=== PATIENT | male | born 1970 | race Caucasian/White ===

== ENCOUNTER 2023-05-06 19:15 | Emergency (ER) | payer OTHER, SELFPAY ==
[2023-05-06 19:27] VITALS: BMI 39.4
[2023-05-06 19:28] VITALS: BP 158/102
--- NOTE | 2023-05-06 19:47 | ED.GENMED ---
History of Present Illness
General
Chief Complaint: Chest Pain
Source: patient
Time Seen by Provider: 05/06/23 19:35
Travel History
Have you had any contact with someone who has COVID-19?: No
Do you have any symptoms of coronavirus? Fever > 100 degrees, chills, cough, shortness of breath, sore throat, loss of taste or smell, muscle aches, or headache?: No
History of Present Illness
History of Present Illness:
52-year-old male presents to the emergency room for evaluation after having a syncopal episode at work. Patient evidently began feeling dizzy. He alerted coworkers who were able to prevent him from falling to the ground. Patient has been
experiencing pain in his chest which she describes as sharp. He was actually evaluated at [facility] yesterday for this sharp chest pain. He had blood work and an echocardiogram which was evidently okay. Patient evidently has a history
of PE for which she takes Coumadin. His INR was low when it was last checked and his dose of Coumadin was increased. Patient has been experiencing this sharp chest pain for the past 3 days or so. He has attributed this to a 'chest cold'. He has
been taking [id number] medications for the chest cold.
Past History
Past History
ED Past Medical History: Arrthythmia, NIDDM and Other (PE)
ED Past Surgical History: Orthopedic and Other
Social History
Tobacco: Non-smoker
Alcohol: None
Drug: None
Personal:
Living: with family
Employment: Employed
Phy Exam
Physical Exam
Physical Exam:
General: Awake, Alert, Oriented X3. No acute distress.
Vitals: unremarkable
Head: Atraumatic
Eyes: Pupils equal, EOMI
Throat: Airway intact, no exudates
Neck: Trachea midline
Lungs: Clear and equal b/l
Heart: Regular rate, no murmurs
Abd: Soft, Nontender, No pulsatile mass
Neuro: Nonfocal
Skin: Warm, dry, no rash
Extremities: pulses equal b/l, no edema
Scores
Heart Score for Chest Pain Patients
STEMI patient?: No
History: Slightly or Non-Suspicious
ECG: Normal
Age: >45 - <65 years
Risk Factors: 1 or 2 Risk Factors
Troponin: </= Normal Limit
Heart Score for Chest Pain Patients: 2
Heart Score Risk: 2.5% MACE over next 6 weeks
Course
Orders/Labs/Results
Orders:
Orders
05/06/23 19:21
EKG [Electrocardiogram (*1)] Urgent
Reason for Study: Tachycardia
EKG- Treatment ONCE
05/06/23 19:39
Complete Blood Count/With Diff Urgent
Comprehensive Metabolic Panel Urgent
Troponin I Urgent
05/06/23 19:41
COVID-19 Antigen Urgent
Source: Nasal Swab
Influenza A+B Rapid Molecular Urgent
XIOMARA Source: Nasal Swab
Specimen Description:
05/06/23 20:12
D-Dimer Urgent
Prothrombin Time Urgent
05/06/23 20:22
Acetaminophen [Tylenol] 1,000 mg .ROUTE .STK-MED ONE
05/06/23 20:24
Acetaminophen [Tylenol] 1,000 mg PO NOW STA
05/06/23 20:53
CR Chest - 2 Views Urgent
Comment:
Reason For Exam: chest pain
05/06/23 22:43
Troponin I Urgent
05/06/23 23:01
Lidocaine [Lidocaine 4% Patch] 1 patch .ROUTE .STK-MED ONE
05/06/23 23:10
Lidocaine [Lidocaine 4% Patch] 1 patch TOPICAL NOW STA
05/07/23 08:00
Lidocaine [Lidocaine 4% Patch] 1 patch TOPICAL DAILY
Abnormal Lab Results
05/06/23 05/06/23
19:39 20:12
RBC 4.43 L 10^6/uL
(4.70-6.10)
MPV 10.6 H fL
(7.4-10.4)
Abs Immat Gran (auto) 0.1 H 10^3/uL
(0-0.05)
Immature Gran % 0.7 H %
(0-0.5)
PT 22.5 H Sec
(11.4-14.6)
Glucose 117 H mg/dl
(70-99)
05/06/23 19:39
05/06/23 19:39
Vital Signs
Initial and Last Documented VS:
Initial Vital Signs
Pulse Resp
78 18
05/06/23 19:20 05/06/23 19:20
Last Documented Vital Signs
Temp Pulse Resp BP Pulse Ox
98.6 F 80 20 154/93 95
05/06/23 19:28 05/07/23 00:15 05/07/23 00:15 05/07/23 00:00 05/07/23 00:15
MDM/Problems Addressed
Differential Diagnosis Includes:
Acute coronary syndrome, PE, chest wall discomfort
MDM/Problems Addressed:
Patient presents with chest pain and syncope. He had a workup at [facility] yesterday for this chest pain which included a echocardiogram. Here patient's vital signs are normal. He is not tachycardic. Is not hypoxic. He does not have
increased work of breathing. Patient is on Coumadin because he has had a PE in the past. His INR is therapeutic today. D-dimer is normal. Troponin is normal x 2. Patient is CT of the chest performed here 2 weeks ago which was unremarkable.
Chest x-ray obtained today shows no acute abnormalities. Unclear what the patient's chest discomfort is from but I feel we have excluded acute coronary syndrome, PE or other emergent process. Patient stable for discharge home. Syncope likely
vasovagal.
*Radiology
Radiology exam reviewed: preliminary read by ED provider (Personally reviewed the patient's chest x-ray, no acute disease)
*Pulse Oximetry
Patient hypoxic: no
*EKG
Interpreted by ED Provider?: Yes
Interpretation: abnormal
Comparison EKG: changes noted (No longer in atrial fibrillation)
Heart Rate: 82
Rate: normal
Rhythm: sinus and PVC's
Interval: normal interval
QRS Pattern: normal QRS
Ischemia: no ischemia
*Finance Business Partner Interpretation
Rate: normal
Interpretation: normal
Rhythm: sinus
*Critical Care Note
Total Time (30-74mins, 75-104mins- exclusive of procedures): Not Applicable
Data Reviewed
Further Testing Considered But Not Given:
Considered CT of the chest but given the patient had a CT 2 weeks ago, he has normal heart rate, normal D-dimer clinical suspicion for PE is very low. In addition he had a CT chest a couple weeks ago so others think such as a thoracic abdomen
dissection would have been picked up at that time.
Patient Management
Social determinants of health affecting care: Strong social support
ED Attending Note
-
Portions of this chart may have been created with voice recognition software.� Occasional wrong word or��sound alike� substitutions may have occurred due to the inherent limitations of voice recognition software.
Discharge Plan
Departure
Patient Disposition: Home (Routine Discharge)
Date of Disposition: 05/07/23
Time of Disposition: 00:16
Patient with high blood pressure during this ER visit?: No
Condition: Good
Discharge Problem:
Chest pain
Instructions: Chest Pain PCP Follow Up, BLOOD PRESSURE
Prescriptions:
No Action
multivitamin Tablet
1 tab PO DAILY
diltiazem HCl [DILT-XR] 240 mg capsule,ext.rel 24h degradable
240 mg PO DAILY
sennosides-docusate sodium [Colace 2-In-1] 8.6-50 mg Tablet
1 tab-cap PO HS
venlafaxine 150 mg capsule,extended release 24hr
150 mg PO DAILY
tramadol 50 mg tablet
50 mg PO BID PRN (Reason: moderate pain)
Patient Comments:
04/15/2023: last filled 04/09/23, 60 tabs for 30 days from [id number]
risperidone 3 mg tablet
3 mg PO HS
metformin 1,000 mg tablet
1,000 mg PO BID
warfarin 5 mg tablet
7.5 mg PO MOTH@1500
warfarin 5 mg tablet
5 mg PO SUTUWEFRSA@1500
valsartan 320 mg tablet
320 mg PO DAILY
metoprolol succinate 25 mg tablet extended release 24 hr
25 mg PO DAILY
buspirone 15 mg tablet
30 mg PO BID
rosuvastatin 20 mg tablet
20 mg PO HS
clonazepam 1 mg Tablet
1 mg PO BID PRN (Reason: anxiety)
lorazepam 1 mg Tablet
1 mg PO BID PRN (Reason: anxiety)
bupropion HCl 75 mg Tablet
75 mg PO DAILY
Referrals:
Jennifer Vasquez, DO [Family Provider] -
Interventions
Interventions:
*Risk Screen - Suicide Last Done: 05/06/23 19:17
*General Assessment Last Done: 05/06/23 19:17
*Neglect/Abuse Screening Last Done: 05/06/23 19:17
ED- Fall Risk Assessment Last Done: 05/06/23 19:35
*ED COVID-19 Vaccine History Last Done: 05/06/23 19:17
*Nursing Disposition Last Done: 05/07/23 00:26
ED- Cardiac Assessment Last Done: 05/06/23 19:35
Discharge Date and Time
Discharge Date/Time: 05/07/23 00:27
[2023-05-06 19:56] LABS: % Basophils 0.4 % (0-2); % Eosinophils 2.7 % (0-6); % Immature Granulocytes 0.7 % (0-0.5); % Lymphocytes 28.2 % (20.5-51.1); % Monocytes 7.9 % (1.7-9.3); % Neutrophils 60.1 % (42.2-75.2); Absolute Eosinophils 0.2 10^3/uL (0-0.7); Absolute Immature Granulocytes 0.1 10^3/uL (0-0.05); Absolute Lymphocytes 2.3 10^3/uL (1.2-3.4); Absolute Monocytes 0.6 10^3/uL (0.1-0.6); Absolute Neutrophils 4.8 10^3/uL (1.4-6.5); Hematocrit 39.6 % (39.0-52.0); Hemoglobin 13.4 g/dL (13.0-18.0); Mean Corp Hgb Conc. 33.8 g/dL (33.0-37.0); Mean Corpuscular Hgb 30.2 pg (27.0-31.0); Mean Corpuscular Volume 89.4 fL (80.0-94.0); Mean Platelet Volume 10.6 fL (7.4-10.4); Nucleated Red Blood Cells % 0 % (-); Platelet Count 239 10^3/uL (130-400); Red Blood Cell Count 4.43 10^6/uL (4.70-6.10); Red Cell Dist. Width 14.2 % (11.5-14.5)
[2023-05-06 20:00] VITALS: BP 154/104
[2023-05-06 20:12] LABS: COVID-19 Antigen Negative (Negative)
[2023-05-06 20:14] LABS: ALT (SGPT) 37 U/L (0-50); AST (SGOT) 29 U/L (17-59); Albumin 4.1 g/dl (3.5-5.0); Alkaline Phosphatase 87 U/L (38-126); Blood Urea Nitrogen 13 mg/dl (9-20); Calcium 9.4 mg/dl (8.4-10.2); Carbon Dioxide 25 mmol/L (22-30); Chloride 100 mmol/L (98-107); Estimated Creatinine Clearance > 125 ml/min; Glucose 117 mg/dl (70-99); Potassium 3.6 mmol/L (3.5-5.1); Sodium 138 mmol/L (135-145); Total Bilirubin 0.6 mg/dl (0.2-1.3); Total Protein 6.6 g/dl (6.3-8.2); eGFR > 60.00
[2023-05-06 20:21] LABS: Troponin I < 0.012 ng/ml
[2023-05-06] MEDS: TYLENOL 1000 MG PO (20:27)
[2023-05-06 20:29] LABS: INR 1.94; PT 22.5 Sec (11.4-14.6)
[2023-05-06 20:34] LABS: D-Dimer 0.27 ug/mlFEU (0.00-0.50)
[2023-05-06 21:00] VITALS: BP 152/99
[2023-05-06 21:37] VITALS: BP 163/99
[2023-05-06 22:00] VITALS: BP 151/101
[2023-05-06] MEDS: LIDOCAINE 4% PATCH 1 PATCH TOPICAL (23:02)
[2023-05-06 23:03] VITALS: BP 166/112
[2023-05-06 23:16] LABS: Troponin I < 0.012 ng/ml
[2023-05-07] VITALS: BP 154/93
== END 2023-05-07 00:27 | disposition home or self-care (01) ==
LOC: EMR 19:15
PROVIDERS: EMERGENCY PHYSICIAN Emergency Medicine; FAMILY PHYSICIAN Family Medicine
DX: R07.89 Other chest pain (principal); E11.9 Type 2 diabetes mellitus without complications; I49.3 Ventricular premature depolarization; Z79.01 Long term (current) use of anticoagulants; Z86.711 Personal history of pulmonary embolism
CPT/HCPCS: 99283; 71046; 80053; 84484; 85025; 85379; 85610; 87502; 87811; 93005

== ENCOUNTER 2024-10-23 00:20 | Observation (INO) | payer OTHER, SELFPAY ==
[2024-10-22] VITALS (7 sets, daily range): BP systolic 131–158; BP diastolic 68–100; BMI 40.9
[2024-10-22 17:35] LABS: Hematocrit 38.2 % (39.0-52.0); Hemoglobin 13.3 g/dL (13.0-18.0); Mean Corp Hgb Conc. 34.8 g/dL (33.0-37.0); Mean Corpuscular Volume 85.3 fL (80.0-94.0); Nucleated Red Blood Cells % 0 % (-); Platelet Count 212 10^3/uL (130-400); Red Cell Dist. Width 13.4 % (11.5-14.5)
[2024-10-22 17:55] LABS: ALT (SGPT) 34 U/L (0-50); AST (SGOT) 27 U/L (17-59); Albumin 4.2 g/dl (3.5-5.0); Alkaline Phosphatase 100 U/L (38-126); Blood Urea Nitrogen 12 mg/dl (9-20); Calcium 9.0 mg/dl (8.4-10.2); Carbon Dioxide 21 mmol/L (22-30); Chloride 111 mmol/L (98-107); Estimated Creatinine Clearance 124 ml/min; Glucose 153 mg/dl (70-99); Potassium 4.3 mmol/L (3.5-5.1); Sodium 140 mmol/L (135-145); Total Protein 6.9 g/dl (6.3-8.2); eGFR > 60.00
[2024-10-22 17:58] LABS: Troponin I < 0.012 ng/ml
[2024-10-22] MEDS: MORPHINE SULFATE 4 MG IV (18:47)
[2024-10-22 19:04] LABS: INR 1.62; PT 19.5 Sec (11.4-14.6)
--- NOTE | 2024-10-22 20:12 | ED.GENMED ---
History of Present Illness
General
Chief Complaint: Chest Pain
Source: patient
Exam Limitations: none
Time Seen by Provider: 10/22/24 18:09
Nursing documentation reviewed up to this point in time: agreed with
History of Present Illness
History of Present Illness:
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
EMS arrival EMS administered 1 nitro very slight improvement. Mild shortness of breath associated no nausea vomiting or diarrhea. No fevers no recent illness. Does have a long history of previous PE currently on Coumadin, atrial fibrillation does
have a pacemaker defibrillator in place. Has had very similar episodes at least 10 over the past year and has had multiple workups without any specific findings. Had a recent CT angio of the chest 1 month ago that was normal last cardiac
catheterization about 1 year ago which was also normal. Follows up with cardiology at [facility].
Past History
Past History
ED Past Medical History: Arrthythmia, NIDDM and Other (PE)
ED Past Surgical History: Orthopedic and Other
Social History
Tobacco: Non-smoker
Alcohol: None
Drug: None
Personal:
Living: with family
Employment: Employed
Review of Systems
Review of Systems
Allergies reviewed?: Yes
All Other Systems: ROS reviewed and negative except as documented in HPI and ROS
Phy Exam
Physical Exam
Physical Exam:
GENERAL: Alert , in no apparent distress
EYE: pupils equal and reactive
NECK: Supple, no significant adenopathy.
ENT: o/p clr, mmm.
CARDIAC: Regular rate and rhythm .
LUNGS: Clear breath sounds bilaterally, no acute respiratory distress, no wheezes/rales/rhonchi
ABDOMEN: Soft, without focal tenderness, no r/g, no cvat
NEUROLOGICAL: Alert and oriented, no focal neuro deficits
SKIN: Warm and dry, skin intact.
MUSCULOSKELETAL: No edema, well perfused.
PSYCH: Normal and appropriate interaction.
Scores
Heart Score for Chest Pain Patients
STEMI patient?: No
History: Moderately Suspicious
ECG: Nonspecific Repolarization
Age: >45 - <65 years
Risk Factors: >/= 3 Risk Factors or History of CAD
Troponin: </= Normal Limit
Heart Score for Chest Pain Patients: 5
Heart Score Risk: 20.3% MACE over next 6 weeks
Course
Orders/Labs/Results
Orders:
Orders
10/22/24 17:20
Electrocardiogram (*1) Urgent
Reason for Study: Chest Pain
Cardiac Monitoring- Treatment ONCE
EKG- Treatment ONCE
10/22/24 17:24
Complete Blood Count/With Diff Urgent
Comprehensive Metabolic Panel Urgent
Troponin I Urgent
10/22/24 17:38
CXR2 [CR Chest - 2 Views ] Urgent
Comment:
Reason For Exam: CP
10/22/24 18:36
Morphine Sulfate 4 mg IV NOW STA
10/22/24 18:40
D-Dimer Urgent
Comment: ADD ON
PT/INR [Prothrombin Time] Urgent
10/22/24 18:54
EKG- Treatment ONCE
10/22/24 20:25
EKG [Electrocardiogram (*1)] Urgent
Reason for Study: Chest Pain
10/22/24 20:33
Add On- LAB Urgent
Comments:: d-dimer
Tests Added?: d-dimer
10/22/24 20:37
D-Dimer Urgent
Troponin I Urgent
10/22/24 20:43
HYDROmorphone [Dilaudid] 0.5 mg IV NOW STA
Abnormal Lab Results
10/22/24 10/22/24
17:24 18:40
RBC 4.48 L 10^6/uL
(4.70-6.10)
Hct 38.2 L %
(39.0-52.0)
MPV 10.8 H fL
(7.4-10.4)
Abs Immat Gran (auto) 0.1 H 10^3/uL
(0-0.05)
Absolute Neuts (auto) 6.7 H 10^3/uL
(1.4-6.5)
Absolute Monos (auto) 0.7 H 10^3/uL
(0.1-0.6)
Immature Gran % 0.6 H %
(0-0.5)
Lymphocytes % 18.2 L %
(20.5-51.1)
PT 19.5 H Sec
(11.4-14.6)
Chloride 111 H mmol/L
(98-107)
Carbon Dioxide 21 L mmol/L
(22-30)
Glucose 153 H mg/dl
(70-99)
10/22/24 17:24
10/22/24 17:24
Vital Signs
Initial and Last Documented VS:
Initial Vital Signs
Temp Pulse Resp BP Pulse Ox
98.9 F 98 20 139/68 97
10/22/24 17:24 10/22/24 17:24 10/22/24 17:24 10/22/24 17:24 10/22/24 17:24
Last Documented Vital Signs
Temp Pulse Resp BP Pulse Ox
98.9 F 85 16 136/84 97
10/22/24 17:24 10/22/24 23:15 10/22/24 18:45 10/22/24 23:00 10/22/24 23:15
MDM/Problems Addressed
MDM/Problems Addressed:
53-year-old male presenting to the emergency department today with concerns of left-sided chest pressure with radiation to the left arm and left jaw. On arrival EKG with nonspecific T wave changes mainly to the lateral leads. Vital signs are
normal labs unremarkable troponin negative. Patient still with ongoing pain was given dose of morphine had slight improvement. Vital signs remained normal throughout ER stay labs with negative D-dimer 2 negative troponins EKG was repeated
unchanged. Chest x-ray normal. Patient was concerned that he had ongoing chest pain concerning the characteristics of the chest pain plan to admit for monitoring overnight.
*Pulse Oximetry
SaO2: 96
Oxygen Mode of Delivery: Room air
Patient hypoxic: no (97)
*Critical Care Note
Total Time (30-74mins, 75-104mins- exclusive of procedures): Not Applicable
ED Attending Note
-
Portions of this chart may have been created with voice recognition software.� Occasional wrong word or��sound alike� substitutions may have occurred due to the inherent limitations of voice recognition software.
Discharge Plan
Departure
Patient Disposition: Admit
Date of Disposition: 10/22/24
Time of Disposition: 23:41
Admit to: Telemetry
Admit to doctor: Chet
Presentation/result/management discussed w/ accepting MD/DO: Hospitalist
Patient with high blood pressure during this ER visit?: No
Condition: Good
Covid-19: Not Applicable
Discharge Problem:
Chest pain
Prescriptions:
No Action
venlafaxine 150 mg capsule,extended release 24hr
150 mg PO DAILY
warfarin 5 mg tablet
7.5 mg PO DAILY
valsartan 320 mg tablet
320 mg PO DAILY
buspirone 15 mg tablet
30 mg PO BID
rosuvastatin 20 mg tablet
20 mg PO HS
lorazepam 1 mg Tablet
1 mg PO BID PRN (Reason: anxiety)
hydralazine 10 mg Tablet
10 mg PO TID
amlodipine 5 mg Tablet
5 mg PO HS
famotidine [Pepcid AC] 20 mg Tablet
20 mg PO DAILY
pantoprazole 40 mg Tablet,Delayed Release (Dr/Ec)
40 mg PO BID
olanzapine 15 mg Tablet
15 mg PO HS
midodrine 2.5 mg Tablet
2.5 mg PO TID
fludrocortisone 0.1 mg Tablet
0.05 mg PO DAILY
pindolol 5 mg Tablet
5 mg PO BID
desmopressin 0.1 mg Tablet
0.1 mg PO .DAILYEVERYMONDAY
guanfacine 1 mg Tablet Extended Release 24 Hr
1 mg PO QPM
potassium chloride 20 mEq Tablet Extended Release
20 meq PO DAILY
magnesium oxide 400 mg magnesium Tablet
400 mg PO HS
Referrals:
Jennifer Vasquez, DO [Family Provider, Family Practice]
Interventions
Interventions:
*Risk Screen - Suicide Last Done: 10/22/24 17:35
*General Assessment Last Done: 10/22/24 17:35
*Neglect/Abuse Screening Last Done: 10/22/24 17:35
*ED- Fall Risk Assessment Last Done: 10/22/24 17:35
*ED COVID-19 Vaccine History Last Done: 10/22/24 17:35
ED- Cardiac Assessment Last Done: 10/22/24 17:35
Discharge Date and Time
Print Language: YORUBA
[2024-10-22] MEDS: DILAUDID 0.5 MG IV (20:52)
[2024-10-22 21:00] LABS: D-Dimer < 0.27 ug/mlFEU (0.00-0.50)
[2024-10-22 21:00] LABS: D-Dimer < 0.27 ug/mlFEU (0.00-0.50)
[2024-10-22 21:09] LABS: Troponin I < 0.012 ng/ml
--- NOTE | 2024-10-22 22:56 | HPS.HSE ---
Family Physician
-
Family Physician: Jennifer Vasquez
Chief Complaint
-
chest pain
History of Present Illness
The patient is a 53-year-old gentleman with past medical history significant for atrial fibrillation, pacemaker, AICD, mve-flulsnc-rxalrpegr diabetes, pulmonary embolism on Coumadin who presents to the emergency department secondary to midsternal
chest pain described as pressure radiating to his left arm and left jaw. 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 He took 2 nitroglycerin prior to EMS arrival with only slight improvement. Chest pain is associated
with shortness of breath, he denies nausea vomiting diarrhea. Of note he has had a CT angio of the chest 1 month prior that was normal. His last cardiac catheterization at [place] was approximately 1 year ago and normal at that time. He was
admitted to [facility] approximately 1 month ago and had a CTA of the chest that time that he says was negative for pulmonary embolism. Of note he also says that his INR was elevated and he held his Coumadin dose yesterday. His tunnel inspector is
at [facility]. INR 1.62, troponin less than 0.012 x 2
ED treatment 4 mg IV morphine, 0.5 mg IV Dilaudid
Medical History
Past Medical History
Past Medical History: Reports Arrhythmia (atrial fibrillation), NIDDM and Other
Additional Past Medical History:
He has an autonomic specialist Dr. Gautam, orthostatic hypotension diagnosed April 2023 [facility], possible POTS
Past Surgical History: Reports Bowel Resection (Partial colectomy 2023 with reversal July 2024 at [place]), Cardiac (AICD, dual-chamber defibrillator pacemaker implanted September 04, [address] [facility], cardiac catheterization August 31, 2023,
umbilical hernia repair 2013, microdiscectomy L4-L5 2018) and Orthopedic
Social History
Tobacco: Non-smoker
Alcohol: None
Drug: None
Personal:
Living: With Family
Family History
Family History: Adopted
Allergies / Home Medications
Allergies reflects when Allergies were last updated in [employer].
Home Medications with original date entered in [facility]
Allergy/Medication List:
Allergies
Allergy/AdvReac Type Severity Reaction Status Date / Time
aspirin Allergy Unknown Unknown Verified 10/22/24 17:24
cefuroxime Allergy Unknown Unknown Verified 10/22/24 17:24
fentanyl Allergy hallucinati Verified 10/22/24 17:24
on/nausea
Latex, Natural Rubber Allergy Unknown Verified 10/22/24 17:24
NSAIDS (Non-Steroidal Allergy Unknown Verified 10/22/24 17:24
Anti-Inflamma
Home Medications
buspirone 15 mg tablet 30 mg PO BID 04/15/23
rosuvastatin 20 mg tablet 20 mg PO HS 04/15/23
valsartan 320 mg tablet 320 mg PO DAILY 04/15/23
venlafaxine 150 mg capsule,extended release 24 hr 150 mg PO DAILY 04/15/23
warfarin 5 mg tablet 7.5 mg PO DAILY 04/15/23
lorazepam 1 mg tablet 1 mg PO BID PRN anxiety 05/06/23
amlodipine 5 mg tablet 5 mg PO HS 10/22/24
desmopressin 0.1 mg tablet 0.1 mg PO .DAILYEVERYMONDAY 10/22/24
famotidine 20 mg tablet (Pepcid AC) 20 mg PO DAILY 10/22/24
fludrocortisone 0.1 mg tablet 0.05 mg PO DAILY 10/22/24
guanfacine 1 mg tablet,extended release 24 hr 1 mg PO QPM 10/22/24
hydralazine 10 mg tablet 10 mg PO TID 10/22/24
magnesium oxide 400 mg PO HS 10/22/24
midodrine 2.5 mg tablet 2.5 mg PO TID 10/22/24
olanzapine 15 mg tablet 15 mg PO HS 10/22/24
pantoprazole 40 mg tablet,delayed release 40 mg PO BID 10/22/24
pindolol 5 mg tablet 5 mg PO BID 10/22/24
potassium chloride 20 mEq tablet,extended release 20 meq PO DAILY 10/22/24
Review of Systems
-
A 12 point ROS was completed and negative except as noted: Yes
Physical Exam
Vital Signs
Vital Signs
Temp Pulse Resp BP Pulse Ox
98.9 F 84 16 158/100 98
10/22/24 17:24 10/22/24 22:00 10/22/24 18:45 10/22/24 22:00 10/22/24 22:00
Physical Exam
General: Well Developed, Well Nourished, No Apparent Distress and Comfortable
HEENT: NormoCephalic, Anicteric and Moist mucous membranes
Respiratory: Clear
Cardiac: S1/S2 and Regular Rhythm
GI: Soft, Non Tender and Non Distended
Musculoskeletal: No Clubbing, No Cyanosis and No Edema
Skin: Warm and Dry
Neuro: AO x 3 and No Motor Deficits
Psych: Calm
Laboratory Results
-
10/22/24 17:24
10/22/24 17:24
Laboratory Results
PT 19.5 Sec (11.4-14.6) H 10/22/24 18:40
INR 1.62 10/22/24 18:40
Total Bilirubin 0.7 mg/dl (0.2-1.3) 10/22/24 17:24
AST 27 U/L (17-59) 10/22/24 17:24
ALT 34 U/L (0-50) 10/22/24 17:24
Alkaline Phosphatase 100 U/L (38-126) 10/22/24 17:24
Troponin I < 0.012 ng/ml 10/22/24 20:37
Data Reviewed
-
Diagnostic Radiology: Image Personally Visualized and interpreted and Report Reviewed by me (Chest x-ray without acute pathology)
Medical Tests (Nuc Med, Echo, EKG etc): Image Personally Visualized and interpreted and Report Reviewed by me (EKG sinus rhythm frequent PVCs unchanged from prior)
Impression/Plan
-
IMPRESSION:
# Chest pain, concern for possible acute coronary syndrome
- Admit to telemetry monitoring
- Consult to cardiology, his tunnel inspector is at [facility]
-Obtain records from [facility]
- Serial cardiac biomarkers
- Patient is allergic to aspirin
-prn Morphine for pain
-NPO p mn pending Cards eval
# Autonomic dysfunction/POTS
-desmopressin weekly
-fludrocortisone
- IV infusions of 2 L every other week
# Continue psychiatric medications
-venlafaxine
-Buspirone
# History of AICD and pacemaker
# Hyperlipidemia
- Rosuvastatin 20 mg daily
# Hx of PE
-repeat INR in am
-cont Coumadin, pt took dose today (skipped yesterday's dose)
# Essential hypertension
- Continue valsartan, amlodipine, hydralazine, pindolol
# GERD
- Pepcid
DVT proph-on Coumadin
Full Code
[2024-10-23] VITALS (9 sets, daily range): BP systolic 129–166; BP diastolic 78–102; BMI 39.6
[2024-10-23] MEDS: NSS 1000 IV (00:32)
[2024-10-23] MEDS: MORPHINE SULFATE 2 MG IV ×3 (00:34→16:23)
[2024-10-23] MEDS: VISKEN 5 MG PO ×3 (02:11→21:23)
[2024-10-23] MEDS: BUSPAR 30 MG PO ×3 (02:12→21:23)
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
[2024-10-23 02:30] LABS: Troponin I < 0.012 ng/ml
[2024-10-23 04:57] LABS: INR 1.53; PT 18.6 Sec (11.4-14.6)
[2024-10-23 04:58] LABS: APTT 32.7 Sec (23.4-35.0)
[2024-10-23 05:08] LABS: Blood Urea Nitrogen 12 mg/dl (9-20); Calcium 8.6 mg/dl (8.4-10.2); Carbon Dioxide 26 mmol/L (22-30); Chloride 108 mmol/L (98-107); Estimated Creatinine Clearance 111 ml/min; Glucose 116 mg/dl (70-99); HDL Cholesterol 33 mg/dl; LDL Cholesterol, Calculated 80 mg/dl; Potassium 3.9 mmol/L (3.5-5.1); Sodium 140 mmol/L (135-145); Very Low Density Lipoprotein 68 mg/dl (0-30); eGFR > 60.00
[2024-10-23 05:17] LABS: Troponin I < 0.012 ng/ml
[2024-10-23] MEDS: MORPHINE SULFATE 1 MG IV (05:33)
[2024-10-23] MEDS: DIOVAN 320 MG PO (08:08)
[2024-10-23] MEDS: ATIVAN 1 MG PO (08:09)
[2024-10-23] MEDS: EFFEXOR XR 150 MG PO (08:09)
[2024-10-23] MEDS: FLORINEF 0.05 MG PO (08:09)
[2024-10-23] MEDS: PEPCID 20 MG PO (08:09)
[2024-10-23] MEDS: APRESOLINE 10 MG PO ×3 (08:09→21:23)
[2024-10-23] MEDS: PROTONIX 40 MG PO ×2 (08:09→21:24)
[2024-10-23] MEDS: COUMADIN 7.5 MG PO (08:10)
[2024-10-23 08:47] LABS: Troponin I < 0.012 ng/ml
[2024-10-23 12:00] LABS: Glycohemoglobin (HgbA1c) 7.0 % (4.0-5.6)
--- NOTE | 2024-10-23 12:00 | W.PN.HOSP.TC ---
Addendum entered and electronically signed by Kuldeep Garcia MD 10/23/24 18:22:
Cardiology is not planning ischemic work up and only plan for echocardiogram tomorrow.
There is also a concern for drug seeking behavior and all narcotics have been discontinued.
No narcotics!
Original Note:
Today's Communication/Plan
-
Cardiology consult
Assessment / Plan
Assessment / Plan
Physical exam:
General: Well Developed, Well Nourished and No Apparent Distress
HEENT: Normocephalic, Atraumatic and Moist Mucous Membranes
Respiratory: Clear to Auscultation; Negative Wheezes, Rales or Rhonchi
Cardiac: Regular Rhythm and S1/S2
GI: Soft, Nontender and Nondistended
Musculoskeletal: No Clubbing, No Cyanosis and No Edema
Neuro: Awake, Alert and Oriented, no neurological deficit
Psych: Calm
A/P:
# Chest pain, concern for possible acute coronary syndrome
- Admit to telemetry monitoring
- Consult to cardiology, his shade classifier is at [facility]
-Obtain records from [place] [facility]
- Serial cardiac biomarkers
- Patient is allergic to aspirin
-prn Morphine for pain
- Patient can eat today-no need for urgent or emergent cardiac intervention for
# Autonomic dysfunction/POTS
-desmopressin weekly
-fludrocortisone
- IV infusions of 2 L every other week
# Continue psychiatric medications
-venlafaxine
-Buspirone
- Psychiatry consult-discussed with psych via [place] text today
# History of AICD and pacemaker
# Hyperlipidemia
- Rosuvastatin 20 mg daily
# Hx of PE
-INR subtherapeutic-see below
-repeat INR in am
-cont Coumadin, pt took dose today (skipped yesterday's dose)-might need increased doses but will wait for cardiology in terms of plans for any procedures or not down the road before adjusting doses.
# Essential hypertension
- Continue valsartan, amlodipine, hydralazine, pindolol
# GERD
- Pepcid
DVT proph-on Coumadin
Full Code
Time spent 35-minute
Anticipated Discharge: 24 - 48 hours
Subjective/Interval History
-
Date of Service: October 23, 2024
Patient currently denies any chest pain or shortness of breath. Afebrile
Objective Data
-
Labs:
Laboratory Results
10/23/24
04:34
PT 18.6 H
INR 1.53
APTT 32.7
Sodium 140
Potassium 3.9
Chloride 108 H
Carbon Dioxide 26
BUN 12
Creatinine 1.2
Glucose 116 H
Calcium 8.6
Vital Signs:
Vital Signs
Temp Pulse Resp BP Pulse Ox
99.1 F 85 18 134/78 94
10/23/24 11:00 10/23/24 11:00 10/23/24 11:00 10/23/24 11:00 10/23/24 11:00
I&O
10/22/24 10/23/24 10/24/24
06:59 06:59 06:59
Intake Total 250 / 250
Output Total 200 / 200
Balance 50 / 50
--- NOTE | 2024-10-23 12:19 | CON.CAR ---
Addendum entered and electronically signed by Brown Christianson MD 10/23/24 14:24:
I saw and examined the patient.
The resident's note was reviewed and I agree with the note.
Comment: This is a complex case and all we have is from data review and information from the patient.
More than 1 year of CP and syncope. Now treated for autonomic dysfxn, Hx of HTN, DVT/PE, AFib, loop implant => dual ICD. Cath less than 2 yrs ago for same CP syndrome was negative. 6 ER visits for CP, first here.
EKG without dynamic ST changes and stable. Tele unremarkable.
Will check old records when they arrive, device interrogation tomorrow, will check echo tomorrow, will stop narcotics, will check krissy/renin
I told the patient that we will not pursue a repeat ischemic evaluation and that I did not feel that his chest pain has a cardiac origin.
He should f/u with cardiologists as an outpatient
Original Note:
Consultation
Consultation Request
Date/Time Consultation Requested: 10/23/24 01:16
Date/Time Consultation Performed: 10/23/24 11:45
Requesting Provider: Dr. Candy Rosenberg
Performing Provider: Dr. Indiana Christianson
Reason for Consultation: Chest pain/ACS
Medical History
-
Chief Complaint: Chest pain
History of Present Illness:
53-year-old male with past medical history of Atrial fibrillation with episodes of V-fib status post Medtronic pacemaker defibrillator 09/04/23 on warfarin, pulmonary embolism on Coumadin, type 2 diabetes, hypertension, orthostatic hypotension
(possible POTS), GERD, and bipolar disorder presented to [facility] for chest pain. Over the past year, patient has episodes of substernal chest pain that radiates into the left arm and jaw that gets better with nitroglycerin. When he is at
his worst, pain is 8 out of 10 in severity. Episodes can last 5 minutes to many hours. They can occur at rest. It is associated with shortness of breath and heart palpitations. He got a cardiac cath in 08/2023 which he states revealed some
non-occlusive plaques. He has not had any stress tests in the past. He was provided nitroglycerin PRN for episodes. He has had 5-6 ER visits for similar pain most recent one last week at [place] all of which were inconclusive. Yesterday around
4:30 pm, similar symptoms started at work prompted him to come to the ER. He took 2 tablets of nitroglycerin which helped, but still had significant pain.
Of note, patient was first diagnosed with atrial fibrillation last year. He states he went into the hospital to be evaluated for lower extremity swelling and was found to have a DVT. He was started on eliquis, but during hospitalization a fragment
broke off and became a PE so they transitioned him to Coumadin. It was at that time they noticed he was in atrial fibrillation. He was discharged on Coumadin and recommended to follow-up with outpatient cardiology for further workup. Further
workup for underlying cause of PE was also done and was inconclusive. He was put in an implanted loop recorder to monitor a.fib and had an episode of V-fib which prompted defibrillator placement. He sees specialist Dr. Gautam for evaluation of POTS
as he has orthostatic hypotension as well. He has never had a renal workup for his ongoing hypertension.
He had 1 additional tab of nitro in EMS. In ED, blood pressure 150/100, heart rate 84, respiratory rate 16, afebrile satting well on room air. Creatinine 1.1, troponin negative, INR 1.62, EKG sinus rhythm with frequent PVCs. He was provided
Dilaudid 0.5 and 4mg morphine for pain and admitted for further work up. Cardiology was consulted for chest pain.
All of the above is per the patients recollection. We have not cross checked with records. Records request has been sent.
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 Gautam [place].
Past Medical History
Past Medical History: Other (Atrial fibrillation, ventricular fibrillation s/p AICD Medtronic dual chamber defibrillator pacemaker implanted September 04, 2023 at [facility], PE/DVT on warfarin type 2 diabetes hypotension, possible POTS, bipolar
disorder, GERD)
Past Surgical History: Other ((Partial colectomy 2023 with reversal July 2024 at [place]), Cardiac (AICD, dual-chamber defibrillator pacemaker implanted September 04, 2023 at [facility], cardiac catheterization August 31, 2023, umbilical hernia
repair 2013, microdiscectomy L4-L5 2018) and Orthopedic)
Social History
Tobacco: Non-Smoker
Alcohol: None
Drug: None
Personal:
Living: With Family
Employment: Employed ([employer])
Family History
Family History: Adopted
Allergies / Home Medications
Allergy/AdvReac Type Severity Reaction Status Date / Time
aspirin Allergy Unknown Unknown Verified 10/22/24 17:24
cefuroxime Allergy Unknown Unknown Verified 10/22/24 17:24
fentanyl Allergy hallucinati Verified 10/22/24 17:24
on/nausea
Latex, Natural Rubber Allergy Unknown Verified 10/22/24 17:24
NSAIDS (Non-Steroidal Allergy Unknown Verified 10/22/24 17:24
Anti-Inflamma
�Medication �Instructions �Recorded �Confirmed �Type
buspirone 15 mg tablet 30 mg PO BID 04/15/23 10/22/24 History
rosuvastatin 20 mg tablet 20 mg PO HS 04/15/23 10/22/24 History
valsartan 320 mg tablet 320 mg PO DAILY 04/15/23 10/22/24 History
venlafaxine 150 mg 150 mg PO DAILY 04/15/23 10/22/24 History
capsule,extended release 24 hr
warfarin 5 mg tablet 7.5 mg PO DAILY 04/15/23 10/22/24 History
lorazepam 1 mg tablet 1 mg PO BID PRN anxiety 05/06/23 10/22/24 History
amlodipine 5 mg tablet 5 mg PO HS 10/22/24 10/22/24 History
desmopressin 0.1 mg tablet 0.1 mg PO .DAILYEVERYMONDAY 10/22/24 10/22/24 History
famotidine 20 mg tablet (Pepcid AC) 20 mg PO DAILY 10/22/24 10/22/24 History
fludrocortisone 0.1 mg tablet 0.05 mg PO DAILY 10/22/24 10/22/24 History
guanfacine 1 mg tablet,extended 1 mg PO QPM 10/22/24 10/22/24 History
release 24 hr
hydralazine 10 mg tablet 10 mg PO TID 10/22/24 10/22/24 History
magnesium oxide 400 mg PO HS 10/22/24 10/22/24 History
midodrine 2.5 mg tablet 2.5 mg PO TID 10/22/24 10/22/24 History
olanzapine 15 mg tablet 15 mg PO HS 10/22/24 10/22/24 History
pantoprazole 40 mg tablet,delayed 40 mg PO BID 10/22/24 10/22/24 History
release
pindolol 5 mg tablet 5 mg PO BID 10/22/24 10/22/24 History
potassium chloride 20 mEq 20 meq PO DAILY 10/22/24 10/22/24 History
tablet,extended release
Review of Systems
-
History Source: Patient
Respiratory: No Symptoms
Cardiac: Chest Pain and Palpitations
Abdomen/GI: No Symptoms
: No Symptoms
Neurological: No Symptoms
Physical Exam
Vital Signs
Temp Pulse Resp BP Pulse Ox
99.1 F 85 18 134/78 94
10/23/24 11:00 10/23/24 11:00 10/23/24 11:00 10/23/24 11:00 10/23/24 11:00
Lab Results
10/22/24 17:24
10/23/24 04:34
Troponin I < 0.012 ng/ml 10/23/24 07:29
Physical Exam
General: No Apparent Distress
Respiratory: Clear
Cardiac: Irregular Rhythm
GI: Soft, Non Tender, Non Distended, Normal Bowel Sounds and Other (LLQ colectomy reversal scar)
Musculoskeletal: No Cyanosis and No Edema
Skin: Warm and Dry
Neuro: AO x 3
Psych: Calm
Impression / Plan
-
53-year-old male with past medical history of Atrial fibrillation with episodes of V-fib status post Medtronic pacemaker defibrillator 09/04/23 on warfarin, pulmonary embolism on Coumadin, type 2 diabetes, hypertension, orthostatic hypotension
(possible POTS), GERD, and bipolar disorder presented to [facility] for chest pain. Troponin x5 (-), EKG nonischemic, LDL 80, hemoglobin A1c pending. More consistent with a non-ischemic chest pain syndrome
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 Dain Adames
Chest pain syndrome
- >1 year
- At least 6 ER/hospital visits
- No obstructive CAD at cath (August 2023) per pt
- This is not ischemic chest pain => We do not favor a stress test
- I will stop narcotics
- Will check echo given his hx of pulm embolus
Recurrent syncope
- Loop findings w/o symptoms led to dual ICD, MDT
- Now treated for autonomic dysfxn
HTN
- Continue home valsartan, hydralazine, amlodipine, pindolol, guanfacine.
- Renin aldosterone level pending and consider outpatient renal artery ultrasound
Prior DVT/PE => warfarin per PCP
HLD
-LDL 80
-Cont rosuvastatin 20
DVT warfarin
Full Code
--- NOTE | 2024-10-23 14:56 | W.PN.UPDATE ---
Update Note
Progress Note Update
Pt approached to offer psychiatric eval, for reported depression with SI. Pt denies any suicidal ideation, denies active depression, states he is stable on existing antidepressant medications, is followed weekly by a psychiatrist. Pt declined
psychiatric evaluation.
Psychiatry will sign off; please re-consult for any new concerns.
--- NOTE | 2024-10-23 15:04 | PTCARENOTE ---
PT this am was complaining of 8/10 substernal pain that radiates to left jaw and left chest wall. Pt could not think of anything that precipitates the pain, pt admits that morphine improves the pain, it is not associated with nausea or vomiting.
The patient's affect was flat and appeared depressed to me. I asked him outright if he had any issues with depressions. he admitted, very easily, that he attempted to commit suicide 3 years ago prior to all of his medical care, I did not ask him
about suicide so i was shocked he shared this with me, but he went on to say, he is not depressed. Since he mentioned his health, the conversation switched to all the medical issues he has had in the past three years. He did get teary eyed and
admitted it has been overwhelming and he is sick of being sick. 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 he recognized what a blessing it is to have an employer who sticks with you through sickness. I
asked him if he has anxiety and he said yes. I asked him if i could give him ativan along with the morphine since the morphine has not been effective at keeping his chest pain at bay. I explained that sometimes anxiety can present like chest pain,
not sure and asked if he would give it a try. Pt asked to try it. I did give him morphine and his PO ativan this am with excellent results. He has not had any pain up until this point. I did go into his room at 1330 and he said, he felt the pain may
be coming back, but at 1500, the patient denied any pain. I did speak with cardiology about being on hydralazine and proamatine TID without paramaters. His first BP of day was 161/102. I held his proamatine and gave all his cardiac
medications. at noon he was 134/78 and i held mid days as well. I spoke with cardiology and asked if we can have parameters on the two medications. The patient stated he takes both no matter what three times a day. Psych did come in to see
patient, but patient did not want it. Pt currently resting in room. Diet was added and ate lunch
--- NOTE | 2024-10-23 18:02 | PTCARENOTE ---
confirmed tylenol allergy that results in open boils all over his body. made aware
--- NOTE | 2024-10-23 18:21 | PTCARENOTE ---
Please disregard the above note. Pt is allergic to NSAIDS not tylenol. made aware. Pt verified he is only allergic to NSAIDs
[2024-10-23] MEDS: MAGNESIUM OXIDE 500 MG PO (21:23)
[2024-10-23] MEDS: ZYPREXA 15 MG PO (21:23)
[2024-10-23] MEDS: NORVASC 5 MG PO (21:23)
[2024-10-23] MEDS: CRESTOR 20 MG PO (21:24)
[2024-10-23] MEDS: TYLENOL 650 MG PO (21:24)
[2024-10-24 03:45] VITALS: BP 136/97
[2024-10-24 05:57] VITALS: BMI 39.5
[2024-10-24 06:07] LABS: Hematocrit 39.4 % (39.0-52.0); Hemoglobin 13.2 g/dL (13.0-18.0); Mean Corp Hgb Conc. 33.5 g/dL (33.0-37.0); Mean Corpuscular Volume 87.4 fL (80.0-94.0); Platelet Count 181 10^3/uL (130-400); Red Cell Dist. Width 13.8 % (11.5-14.5)
[2024-10-24 06:25] LABS: INR 1.56; PT 18.9 Sec (11.4-14.6)
[2024-10-24 06:32] LABS: Blood Urea Nitrogen 14 mg/dl (9-20); Calcium 8.5 mg/dl (8.4-10.2); Carbon Dioxide 26 mmol/L (22-30); Chloride 107 mmol/L (98-107); Estimated Creatinine Clearance 103 ml/min; Glucose 144 mg/dl (70-99); Potassium 4.0 mmol/L (3.5-5.1); Sodium 139 mmol/L (135-145); eGFR > 60.00
[2024-10-24 07:41] VITALS: BP 138/82
--- NOTE | 2024-10-24 08:18 | W.PN.HOSP.TC ---
Today's Communication/Plan
-
Echocardiogram. Discharge planning
Assessment / Plan
Assessment / Plan
Physical exam:
General: Well Developed, Well Nourished and No Apparent Distress
HEENT: Normocephalic, Atraumatic and Moist Mucous Membranes
Respiratory: Clear to Auscultation; Negative Wheezes, Rales or Rhonchi
Cardiac: Regular Rhythm and S1/S2
GI: Soft, Nontender and Nondistended
Musculoskeletal: No Clubbing, No Cyanosis and No Edema
Neuro: Awake, Alert and Oriented, no neurological deficit
Psych: Calm
A/P:
# Chest pain, concern for possible acute coronary syndrome
- Admit to telemetry monitoring
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
-Obtain records from [facility]
- Serial cardiac biomarkers
- Patient is allergic to aspirin
- Discontinued prn Morphine for pain due to concerns for ?drug-seeking behavior
-Cardiology reviewed ICD interrogation
- Pending echocardiogram
- Cardiology evaluated him and recommended discharge home if echocardiogram unremarkable
# Autonomic dysfunction/POTS
-desmopressin weekly
-fludrocortisone
- IV infusions of 2 L every other week
# Continue psychiatric medications
-venlafaxine
-Buspirone
- Consulted psychiatry but patient declined
# History of AICD and pacemaker
# Hyperlipidemia
- Rosuvastatin 20 mg daily
# Hx of PE
-INR subtherapeutic-continue warfarin
- Needs close follow-up as outpatient
# Essential hypertension
- Continue valsartan, amlodipine, hydralazine, pindolol
# GERD
- Pepcid
DVT proph-on Coumadin
Full Code
Anticipated Discharge: Today
Subjective/Interval History
-
Date of Service: October 24, 2024
No new complaints today.
Objective Data
-
Labs:
Laboratory Results
10/24/24
05:43
WBC 6.7
Hgb 13.2
Hct 39.4
Plt Count 181
PT 18.9 H
INR 1.56
Sodium 139
Potassium 4.0
Chloride 107
Carbon Dioxide 26
BUN 14
Creatinine 1.3
Glucose 144 H
Calcium 8.5
Vital Signs:
Vital Signs
Temp Pulse Resp BP Pulse Ox
98.0 F 77 18 138/82 96
10/24/24 07:41 10/24/24 07:41 10/24/24 07:41 10/24/24 07:41 10/24/24 07:41
I&O
10/23/24 10/24/24 10/25/24
06:59 06:59 06:59
Intake Total 250 / 250 2200 / 2200
Output Total 200 / 200 3140 / 3140
Balance 50 / 50 -940 / -940
[2024-10-24] MEDS: FLORINEF 0.05 MG PO (08:36)
[2024-10-24] MEDS: APRESOLINE 10 MG PO ×2 (08:36→16:20)
[2024-10-24] MEDS: VISKEN 5 MG PO (08:37)
--- NOTE | 2024-10-24 08:37 | W.PN.CD ---
Addendum entered and electronically signed by Brown Christianson MD 10/24/24 10:29:
I saw and examined the patient. The resident's note was reviewed and I agree with the note.
Comment:
I reviewed tele: NSR, rare PVCs
I reviewed ICD interrogation: Normal battery/leads. No AF or VT since last device check. AFib was seen near end of September/early October.
Records of cardiac cath from outside hospital are not yet available for review.
Echo has yet to be obtained.
Lungs clear. ICD site normal.
Sam/Renin level pending
OK for home if echo today is unremarkable.
I asked him to followup with outpatient cardiologists.
.
Original Note:
Today's Communication / Plan
-
echo pending
Check care link
Okay to discharge if unremarkable
Impression / Plan
-
53-year-old male with past medical history of Atrial fibrillation with episodes of V-fib status post Medtronic pacemaker defibrillator 09/04/23 on warfarin, pulmonary embolism on Coumadin, type 2 diabetes, hypertension, orthostatic hypotension
(possible POTS), GERD, and bipolar disorder presented to [facility] for chest pain. Troponin x5 (-), EKG nonischemic, LDL 80, hemoglobin A1c pending. More consistent with a non-ischemic chest pain syndrome. Medical records unable to obtain
over the weekend. They are currently pending.
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 Dain Adames
Chest pain syndrome
- >1 year
- At least 6 ER/hospital visits
- No obstructive CAD at cath (August 2023) per pt
- This is not ischemic chest pain => We do not favor a stress test
- I will stop narcotics
- Will check echo given his hx of pulm embolus - echo pending
- Okay to discharge today if echo unremarkable
- Will check defibrillator history today as well
Recurrent syncope
- Loop findings w/o symptoms led to dual ICD, MDT
- Now treated for autonomic dysfxn
HTN
- Continue home valsartan, hydralazine, amlodipine, pindolol, guanfacine.
- Renin aldosterone level pending and consider outpatient renal artery ultrasound
Prior DVT/PE => warfarin per PCP
HLD
-LDL 80
-Cont rosuvastatin 20
DVT warfarin
Full Code
Subjective: Pt states chest pain has resolved and he got a good nights sleep. He is okay going home today if echo is unremarkable.
Physical Exam
Vital Signs/Labs
Vital Signs
Temp Pulse Resp BP Pulse Ox
98.0 F 77 18 138/82 96
10/24/24 07:41 10/24/24 07:41 10/24/24 07:41 10/24/24 07:41 10/24/24 07:41
10/23/24 10/24/24 10/25/24
06:59 06:59 06:59
Actual Weight 143.607 kg 143.471 kg
10/24/24 05:43
10/24/24 05:43
PT 18.9 Sec (11.4-14.6) H 10/24/24 05:43
INR 1.56 10/24/24 05:43
APTT 32.7 Sec (23.4-35.0) 10/23/24 04:34
Triglycerides 342 mg/dl (10-149) H 10/23/24 04:34
LDL Cholesterol, Calc 80 mg/dl 10/23/24 04:34
VLDL Cholesterol, Calc 68 mg/dl (0-30) H 10/23/24 04:34
HDL Cholesterol 33 mg/dl 10/23/24 04:34
LAB Results
10/22/24 10/22/24 10/23/24
17:24 20:37 01:29
Troponin I < 0.012 < 0.012 < 0.012
10/23/24 10/23/24
04:34 07:29
Troponin I < 0.012 < 0.012
Physical Exam
Constitutional: No acute distress and Comfortable
Cardiovascular: Rhythm & rate is regular (many PVCs) and Pedal edema is absent
Respiratory: Lungs clear to auscul.
GI: Soft, Non tender and Normal bowel sounds
Neuro/Psych: AO x 3
Data Reviewed
-
Date of Service: October 24, 2024
[2024-10-24] MEDS: PROTONIX 40 MG PO (08:39)
[2024-10-24] MEDS: DIOVAN 320 MG PO (08:39)
[2024-10-24] MEDS: PEPCID 20 MG PO (08:40)
[2024-10-24] MEDS: BUSPAR 30 MG PO (08:40)
[2024-10-24] MEDS: EFFEXOR XR 150 MG PO (08:40)
[2024-10-24] MEDS: COUMADIN 7.5 MG PO (08:40)
[2024-10-24 11:00] VITALS: BP 136/92
--- NOTE | 2024-10-24 11:01 | W.DCSUMMARY ---
Discharge Summary
Discharge Data
Date of Admission: 10/23/24
Date of Discharge: 10/24/24
-
Pending Results: No
Hospital Course
Patient 53 years old male with past medical history of A-fib, ventricular fibrillation on AICD, PE on warfarin, hypertension, diabetes mellitus, orthostatic hypotension, POTS, GERD, bipolar disorder, came into the hospital with chest pain.
Patient's care is typically at [facility]. Cardiology was consulted. Patient cardiac enzymes unremarkable. His narcotics were discontinued due to concern for opiate use disorder or drug seeking behavior. He had a interrogation
of his AICD. There was normal battery leads no AF or VT since last device check. We asked psychiatrist to see him but he declined consultation. Cardiology felt that his chest pain was nonischemic in nature and no need for further evaluation as
inpatient. He did have an echocardiogram and came back unremarkable. Cardiology has cleared him for discharge. He will be discharged in relatively stable condition today.
Discharge Plan
-
Patient Disposition: Home (Routine Discharge)
Discharge Diagnosis/Procedures: Atypical chest pain. History of recurrent syncope. History of venous thromboembolism on chronic anticoagulation.
Diet: Low Cholesterol
Activity: As tolerated
Blood Work: Please PCP to order CBC, BMP, INR within 1 week
Referrals:
Jennifer Vasquez DO [Family Provider, Family Practice] - in less than 1 week
Prescriptions:
Continued
venlafaxine 150 mg capsule,extended release 24hr
150 mg PO DAILY
warfarin 5 mg tablet
7.5 mg PO DAILY
valsartan 320 mg tablet
320 mg PO DAILY
buspirone 15 mg tablet
30 mg PO BID
rosuvastatin 20 mg tablet
20 mg PO HS
lorazepam 1 mg Tablet
1 mg PO BID PRN (Reason: anxiety)
hydralazine 10 mg Tablet
10 mg PO TID
amlodipine 5 mg Tablet
5 mg PO HS
famotidine [Pepcid AC] 20 mg Tablet
20 mg PO DAILY
pantoprazole 40 mg Tablet,Delayed Release (Dr/Ec)
40 mg PO BID
olanzapine 15 mg Tablet
15 mg PO HS
midodrine 2.5 mg Tablet
2.5 mg PO TID
fludrocortisone 0.1 mg Tablet
0.05 mg PO DAILY
pindolol 5 mg Tablet
5 mg PO BID
desmopressin 0.1 mg Tablet
0.1 mg PO .DAILYEVERYMONDAY
guanfacine 1 mg Tablet Extended Release 24 Hr
1 mg PO QPM
potassium chloride 20 mEq Tablet Extended Release
20 meq PO DAILY
magnesium oxide 400 mg magnesium Tablet
400 mg PO HS
Discharge Orders:
Discharge Patient (As Directed); Ordered 10/24/24
Ordered By: Kuldeep Garcia
Discharge Date and Time
Discharge Date/Time: 10/24/24 17:10
Print Language: IRISH
[2024-10-24] MEDS: COUMADIN 2.5 MG PO (11:48)
[2024-10-24] MEDS: ATIVAN 1 MG PO (11:50)
[2024-10-24] MEDS: TYLENOL 650 MG PO (13:10)
[2024-10-24 15:00] VITALS: BP 130/88
--- NOTE | 2024-10-24 17:15 | CM ---
Pt admitted with chest pain to OBS status. Pt is (I) amb and adls, lives with his in a 2 story home with 1 entry step.
Pt discharged to home with no needs. OBS form reviewed with patient, signed and placed in chart.
Plan: Discharge to home with no identified needs.
[2024-10-27 08:50] LABS: Aldosterone/Renin Activ Ratio 180.0 ratio (<=25.0); Renin Activity Results 0.1 ng/mL/hr
== END 2024-10-24 17:10 | disposition home or self-care (01) ==
LOC: 3 WEST ACU 00:20
PROVIDERS: Physician Assistant; ADMITTING PHYSICIAN Internal Medicine; ATTENDING PHYSICIAN Hospitalist; CONSULT PHYSICIAN Internal Medicine Cardiovascular Disease; EMERGENCY PHYSICIAN Emergency Medicine; FAMILY PHYSICIAN Family Medicine
DX: R07.89 Other chest pain (principal); I48.91 Unspecified atrial fibrillation; I10 Essential (primary) hypertension; E11.43 Type 2 diabetes mellitus with diabetic autonomic (poly)neuropathy; G90.A Postural orthostatic tachycardia syndrome [POTS]; E78.5 Hyperlipidemia, unspecified; F31.9 Bipolar disorder, unspecified; K21.9 Gastro-esophageal reflux disease without esophagitis; Z79.01 Long term (current) use of anticoagulants; Z79.899 Other long term (current) drug therapy; Z86.711 Personal history of pulmonary embolism; Z86.718 Personal history of other venous thrombosis and embolism; Z95.810 Presence of automatic (implantable) cardiac defibrillator
CPT/HCPCS: 71046; 80048; 80053; 80061; 82088; 83036; 84244; 84484; 85025; 85027; 85379; 85610; 85730; 87070; 93005; 93306; 96361; 96374; 96375; 99285; G0378

== ENCOUNTER 2024-11-30 19:08 | Emergency (ER) | payer OTHER, SELFPAY ==
[2024-11-30 19:08] VITALS: BMI 41.0
[2024-11-30 19:12] VITALS: BP 129/83
[2024-11-30 19:27] LABS: Hematocrit 35.0 % (39.0-52.0); Hemoglobin 12.0 g/dL (13.0-18.0); Mean Corp Hgb Conc. 34.3 g/dL (33.0-37.0); Mean Corpuscular Volume 84.7 fL (80.0-94.0); Nucleated Red Blood Cells % 0 % (-); Platelet Count 212 10^3/uL (130-400); Red Cell Dist. Width 13.7 % (11.5-14.5)
[2024-11-30 19:37] LABS: INR 2.32; PT 26.0 Sec (11.4-14.6)
[2024-11-30 20:00] LABS: ALT (SGPT) 29 U/L (0-50); AST (SGOT) 23 U/L (17-59); Albumin 4.2 g/dl (3.5-5.0); Alkaline Phosphatase 92 U/L (38-126); Blood Urea Nitrogen 16 mg/dl (9-20); Calcium 9.2 mg/dl (8.4-10.2); Carbon Dioxide 24 mmol/L (22-30); Chloride 107 mmol/L (98-107); Glucose 115 mg/dl (70-99); Potassium 4.3 mmol/L (3.5-5.1); Sodium 137 mmol/L (135-145); Total Protein 6.8 g/dl (6.3-8.2); Troponin I < 0.012 ng/ml; eGFR > 60.00
[2024-11-30 20:22] VITALS: BP 143/97
[2024-11-30 21:00] VITALS: BP 147/97
--- NOTE | 2024-11-30 21:38 | ED.GENMED ---
History of Present Illness
General
Chief Complaint: Cardiac Symptoms
Source: patient and spouse
Exam Limitations: none
Time Seen by Provider: 11/30/24 20:46
Nursing documentation reviewed up to this point in time: agreed with
History of Present Illness
History of Present Illness:
Note:
CHIEF COMPLAINT(S)
Chest pain and syncope episodes.
HISTORY OF PRESENT ILLNESS
The patient is a 53-year-old male who reports experiencing episodes of intense chest pain described as 'bizarre chest cracks' over the past few months. The pain mimics a heart attack, radiating down the arm, up the neck, and the back, but has not
led to any conclusive findings during emergency room visits. The patient has visited the emergency department 12 times since October and was admitted twice. Episodes are sometimes associated with syncope. Despite cardiac evaluations, including ECGs and
lab work, no definitive cardiac etiology has been identified. The patient is implanted with a Medtronic pacemaker with a defibrillator following an episode of ventricular fibrillation identified after a cardiac catheterization in 2019. The patients
social insurance analyst, Dr. Gustavo Josue, has been overseeing his treatment. The patient reports occasional relief with nitroglycerin and notes the application of a low-dose transdermal patch which has been beneficial. He does not currently experience chest
pain. The patient mentions having undergone two cardiac catheterizations in the past.
PAST MEDICAL AND SURIGICAL HISTORY
The patient has a history of ventricular fibrillation and syncope. He has undergone cardiac catheterizations and pacemaker implantation.
ADDITIONAL HISTORY OBTAINED FROM SOURCES OTHER THAN THE PATIENT
Per the patient�s social insurance analyst, Dr. Gustavo Josue, the patient follows up regularly and has been managed with a pacemaker. He has been assessed a few times in [facility] emergency room.
CHRONIC MEDICAL CONDITIONS SIGNIFICANTLY AFFECTING CARE
The patient has a history of ventricular fibrillation and syncope. He is also on cholesterol medication following findings from 2019.
PHYSICAL EXAM
General: Alert, no acute distress.
Skin: Warm, dry.
Head: Normocephalic, atraumatic.
Neck: Supple, trachea midline.
Eye Ears, nose, mouth and throat: Oral mucosa moist.
Cardiovascular: Normal peripheral perfusion, No edema.
Respiratory: Respirations are non-labored.
Gastrointestinal : Abdomen nondistended
Back: Normal range of motion, Normal alignment.
Musculoskeletal: Normal range of motion, normal strength.
Neurological: Alert and oriented to person, place, time, and situation, No focal neurological deficit observed.
Psychiatric: Cooperative, appropriate mood & affect.
PLAN
1. Review pacemaker and defibrillator function to ensure they are operating as expected.
2. Obtain repeat blood tests to monitor cardiac enzymes and other relevant markers.
3. Continue the low-dose transdermal patch and monitor for efficacy in pain and symptom control.
4. Follow up with social insurance analyst Dr. Gustavo Josue for ongoing management and evaluation.
5. Consider further diagnostic work-up or revision of treatment plan based on pacemaker and symptom evaluation results.
DIFFERENTIAL DIAGNOSIS
The Differential Diagnosis includes, in no particular order and is not limited to:
1. Ischemic heart disease
2. Cardiac arrhythmia
3. Costochondritis
4. Gastroesophageal reflux disease (GERD)
5. Musculoskeletal pain
6. Panic disorder or anxiety
7. Aortic dissection
8. Pericarditis
9. Pulmonary embolism
10. Mitral valve prolapse
CARE-UPDATE
11/30/24 - 23:21
The patient reports left-side chest pain, likely musculoskeletal in origin. Recent consultations included multiple cardiac catheterizations. Despite recurrent hospital visits, multiple troponin tests returned negative results, and EKG shows no signs
of ischemia. The patients condition remains stable, and they are deemed fit for discharge.
Disposition:
SUMMARY OF ENCOUNTER
The patient presented with chest pain and was seen in the emergency department to ensure there were no acute cardiac issues. The patient has a history of ventricular fibrillation and syncope and reports recurrent episodes that mimic heart attacks
but with no conclusive findings on previous emergency visits. He is under regular follow-up with his social insurance analyst at [employer].
ASSESSMENT
The chest pain is likely musculoskeletal in origin due to negative troponin results and lack of ischemic signs on EKG.
PLAN
1. Continue with routine follow-up with attending social insurance analyst.
2. Maintain current use of nitroglycerin as needed for episodic chest pain.
3. No changes to existing pacemaker management.
FOLLOW-UP INSTRUCTIONS
The patient is advised to follow up with his social insurance analyst at [employer].
MEDICAL DECISION MAKING
- Complexity of Data Reviewed: Chronic conditions affecting care include ventricular fibrillation and syncope. Differential diagnosis considerations include ischemic heart disease, cardiac arrhythmia, costochondritis, gastroesophageal reflux
disease, musculoskeletal pain, panic disorder or anxiety, aortic dissection, pericarditis, pulmonary embolism, and mitral valve prolapse.
- Data:
Category 2: Clinical information and discussions with the patients social insurance analyst, Dr. Gustavo Josue, were part of care management.
DIAGNOSIS
- chest pain
Past History
Past History
ED Past Medical History: Arrthythmia, NIDDM and Other (PE)
ED Past Surgical History: Orthopedic and Other
Social History
Tobacco: Non-smoker
Alcohol: None
Drug: None
Personal:
Living: with family
Employment: Employed
Phy Exam
Physical Exam
Physical Exam:
.
Scores
Heart Score for Chest Pain Patients
STEMI patient?: No
History: Slightly or Non-Suspicious
ECG: Normal
Age: >45 - <65 years
Risk Factors: 1 or 2 Risk Factors
Troponin: </= Normal Limit
Heart Score for Chest Pain Patients: 2
Heart Score Risk: 2.5% MACE over next 6 weeks
Course
Orders/Labs/Results
Orders:
Orders
11/30/24 19:09
ECG [Electrocardiogram (*1)] Urgent
Reason for Study: Chest Pain
EKG- Treatment ONCE
11/30/24 19:20
Complete Blood Count/With Diff Urgent
Comprehensive Metabolic Panel Urgent
INR [Prothrombin Time] Urgent
Troponin I Urgent
11/30/24 21:38
IV Insert/Care/Rem.- Treatment PRN
HYDROmorphone [Dilaudid] 1 mg IV NOW STA
11/30/24 22:15
Troponin I Urgent
11/30/24 23:19
Oxycodone/Acetaminophen [Percocet 5/325] 1 tablet PO NOW STA
Abnormal Lab Results
11/30/24
19:20
RBC 4.13 L 10^6/uL
(4.70-6.10)
Hgb 12.0 L g/dL
(13.0-18.0)
Hct 35.0 L %
(39.0-52.0)
Absolute Monos (auto) 0.7 H 10^3/uL
(0.1-0.6)
Monocytes % 9.7 H %
(1.7-9.3)
PT 26.0 H Sec
(11.4-14.6)
Glucose 115 H mg/dl
(70-99)
11/30/24 19:20
11/30/24 19:20
Vital Signs
Initial and Last Documented VS:
Initial Vital Signs
Temp Pulse Resp BP Pulse Ox
98.5 F 88 16 129/83 98
11/30/24 19:12 11/30/24 19:12 11/30/24 19:12 11/30/24 19:12 11/30/24 19:12
Last Documented Vital Signs
Temp Pulse Resp BP Pulse Ox
98.5 F 93 17 151/101 97
11/30/24 19:12 11/30/24 23:00 11/30/24 23:00 11/30/24 23:00 11/30/24 22:00
*Pulse Oximetry
SaO2: 98
Oxygen Mode of Delivery: Room air
Patient hypoxic: no
*Critical Care Note
Total Time (30-74mins, 75-104mins- exclusive of procedures): Not Applicable
ED Attending Note
-
Portions of this chart may have been created with voice recognition software.� Occasional wrong word or��sound alike� substitutions may have occurred due to the inherent limitations of voice recognition software.
Discharge Plan
Departure
Patient Disposition: Home (Routine Discharge)
Date of Disposition: 11/30/24
Time of Disposition: 23:21
Patient with high blood pressure during this ER visit?: Yes
Condition: Good
Discharge Problem:
Chest pain
Instructions: Chest Pain NON-DHP Segment Assembler Follow Up, BLOOD PRESSURE
Prescriptions:
No Action
venlafaxine 150 mg capsule,extended release 24hr
150 mg PO DAILY
warfarin 5 mg tablet
7.5 mg PO DAILY
valsartan 320 mg tablet
320 mg PO DAILY
buspirone 15 mg tablet
30 mg PO BID
rosuvastatin 20 mg tablet
20 mg PO HS
lorazepam 1 mg Tablet
1 mg PO BID PRN (Reason: anxiety)
hydralazine 10 mg Tablet
10 mg PO TID
amlodipine 5 mg Tablet
5 mg PO HS
famotidine [Pepcid AC] 20 mg Tablet
20 mg PO DAILY
pantoprazole 40 mg Tablet,Delayed Release (Dr/Ec)
40 mg PO BID
olanzapine 15 mg Tablet
15 mg PO HS
midodrine 2.5 mg Tablet
2.5 mg PO TID
fludrocortisone 0.1 mg Tablet
0.05 mg PO DAILY
pindolol 5 mg Tablet
5 mg PO BID
desmopressin 0.1 mg Tablet
0.1 mg PO .DAILYEVERYMONDAY
guanfacine 1 mg Tablet Extended Release 24 Hr
1 mg PO QPM
potassium chloride 20 mEq Tablet Extended Release
20 meq PO DAILY
magnesium oxide 400 mg magnesium Tablet
400 mg PO HS
Referrals:
Jennifer Vasquez DO [Family Provider, Family Practice]
Interventions
Interventions:
ED- Pulmonary Assessment Last Done: 11/30/24 20:56
ED- Cardiac Assessment Last Done: 11/30/24 20:56
Discharge Date and Time
Print Language: THAI
[2024-11-30 22:00] VITALS: BP 145/93
[2024-11-30] MEDS: DILAUDID 1 MG IV (22:06)
[2024-11-30 22:46] LABS: Troponin I < 0.012 ng/ml
[2024-11-30 23:00] VITALS: BP 151/101
[2024-11-30] MEDS: PERCOCET 5/325 1 TABLET PO (23:27)
== END 2024-11-30 23:48 | disposition home or self-care (01) ==
LOC: EMR 19:08
PROVIDERS: Emergency Medicine; EMERGENCY PHYSICIAN Emergency Medicine; FAMILY PHYSICIAN Family Medicine
DX: R07.9 Chest pain, unspecified (principal); R03.0 Elevated blood-pressure reading, without diagnosis of hypertension; E11.9 Type 2 diabetes mellitus without complications; I49.9 Cardiac arrhythmia, unspecified; Z95.810 Presence of automatic (implantable) cardiac defibrillator; Z86.79 Personal history of other diseases of the circulatory system; Z86.711 Personal history of pulmonary embolism
CPT/HCPCS: 99284; 96374; 80053; 84484; 85025; 85610; 93005

== ENCOUNTER 2024-12-10 16:28 | Emergency (ER) | payer OTHER, SELFPAY ==
[2024-12-10 16:37] VITALS: BP 124/91
[2024-12-10 17:07] LABS: Hematocrit 36.9 % (39.0-52.0); Hemoglobin 12.8 g/dL (13.0-18.0); Mean Corp Hgb Conc. 34.7 g/dL (33.0-37.0); Mean Corpuscular Volume 83.9 fL (80.0-94.0); Nucleated Red Blood Cells % 0 % (-); Platelet Count 238 10^3/uL (130-400); Red Cell Dist. Width 13.8 % (11.5-14.5)
[2024-12-10 17:14] LABS: INR 2.74; PT 28.9 Sec (11.4-14.6)
[2024-12-10 17:22] LABS: ALT (SGPT) 36 U/L (0-50); AST (SGOT) 23 U/L (17-59); Albumin 4.2 g/dl (3.5-5.0); Alkaline Phosphatase 85 U/L (38-126); Blood Urea Nitrogen 23 mg/dl (9-20); Calcium 9.1 mg/dl (8.4-10.2); Carbon Dioxide 28 mmol/L (22-30); Chloride 105 mmol/L (98-107); Glucose 132 mg/dl (70-99); Lipase 38 U/L (23-300); Potassium 4.4 mmol/L (3.5-5.1); Sodium 138 mmol/L (135-145); Total Protein 6.7 g/dl (6.3-8.2); eGFR > 60.00
[2024-12-10 17:40] LABS: Troponin I < 0.012 ng/ml
--- NOTE | 2024-12-10 19:51 | ED.GENMED ---
History of Present Illness
General
Chief Complaint: Chest Pain
Time Seen by Provider: 12/10/24 19:51
History of Present Illness
History of Present Illness:
FOCUSED PAST MEDICAL HISTORY
- The patient has a history of PE, A-fib, has a Medtronic AICD and has had V-fib in the past, he is a diabetic.
REVIEW OF OLD RECORDS
- Troponin was checked on 11/30/2024 and was also less than 0.012
Note:
CHIEF COMPLAINT(S)
Chest pain.
HISTORY OF PRESENT ILLNESS
The patient is a 54-year-old male with a history of having a loop recorder device implanted due to suspected ventricular fibrillation (V-Fib). Approximately 18 months ago, the device implantation was prompted by an episode interpreted as potential
V-Fib, although there was uncertainty whether it was V-Fib or an artifact. The patient experienced an event during this time which involved falling and was one of the most severe episodes remembered. Today, the patient presented with a sudden onset
of chest pain around 4:30 or 5:30 PM. The pain is described as massive and radiating down the left arm and up the back. The patient denies known coronary artery disease but mentions having undergone cardiac catheterization in August 2023, which showed
minimal plaque and did not require stenting. The patient reports that the current pain comes and goes.
The patient is under the care of Dr. Charles (also known as Dr. Anderson), a change over. Currently, the patient is on a low-dose fentanyl patch prescribed by a auto body painter. The patient was previously given dilaudid during an ER visit,
which helped alleviate the pain significantly.
CHRONIC MEDICAL CONDITIONS SIGNIFICANTLY AFFECTING CARE
Chronic conditions affecting care include suspected ventricular fibrillation and pain requiring management with a fentanyl patch.
SOCIAL DETERMINANTS OF HEALTH
The patient�s pain management is influenced by insurance considerations for medication coverage.
PHYSICAL EXAM
- General: Well appearing in no distress, elevated BMI
- HEENT: Moist oral mucosa
- Cardiovascular: No murmurs, normal heart rate, regular rhythm, No chest wall tenderness, some occasional ectopy noted
- Pulmonary: No respiratory distress, breath sounds are clear and equal
- Abdomen: Soft with no peritoneal signs, no tenderness
- Neurologic: Excellent strength all extremities, no coordination deficits
- Psychiatric: Appropriate mental status, normal insight and judgement
- Extremities: Nontender, no edema, moves all extremities equally
- Skin: No rash, no lesions
PLAN
- Repeat cardiac blood work to evaluate for any changes since symptoms onset.
- Administer a dose of Dilaudid to help alleviate pain.
- Provide intravenous fluids while the patient is in the emergency department.
- Request device interrogation to assess for any rhythm disturbances.
DIFFERENTIAL DIAGNOSIS
The Differential Diagnosis includes, in no particular order and is not limited to:
- Myocardial infarction
- Aortic dissection
- Pulmonary embolism
- Unstable angina
- Thoracic spine radiculopathy
- Gastroesophageal reflux disease
- Muscle strain
- Anxiety or panic attack
- Costochondritis
- Pericarditis
SUMMARY OF ENCOUNTER
The patient presented with acute chest pain radiating to the left arm and back. The patient has a history of suspected ventricular fibrillation, for which a loop recorder was implanted. Current management includes a fentanyl patch for chronic pain.
Cardiac blood work was conducted and will be repeated, and device interrogation was ordered. Pain management included administration of Dilaudid and IV fluids.
MEDICATION RECONCILIATION
- Fentanyl patch for pain management.
- Administer one dose of Dilaudid in the emergency department.
MEDICAL DECISION MAKING
- Complexity of Data Reviewed: Chronic conditions affecting care include suspected ventricular fibrillation.
- Data:
- Category 1: Cardiac blood work was reviewed and will be repeated to monitor for changes. Device interrogation will be performed.
- Risk:
- Consideration of Admission/Observation: Escalation of care including admission/observation was considered given the complexity and risk of the patients presenting complaint, exam findings, and underlying comorbidities. However, ultimately, the
patient is safe for outpatient management with close follow-up. Reasoning: Work-up reassuring, does not reveal any acute life/organ threatening processes, patients symptoms well controlled upon reevaluation, reexamination is reassuring, vitals are
stable, patient agreeable with discharge, reliable for follow-up.
DIAGNOSIS
- Chest pain, unspecified (ICD-10: R07.9)
- History of suspected ventricular fibrillation (ICD-10: I49.01)
EKG
- Sinus 94, PVCs, inferior Q waves, no significant change from 11/30/2024
LABS
- CBC unremarkable, chemistries unremarkable, troponin less than 0.012 x 2
SUMMARY OF ENCOUNTER
The patient, a 54-year-old male, presented to the emergency department with acute chest pain radiating to the left arm and back. He has a history of suspected ventricular fibrillation for which a loop recorder was implanted. The patient is managed
with a fentanyl patch for chronic pain. He had undergone cardiac catheterization previously which showed minimal plaque. In the emergency department, chest pain was treated effectively with a dose of hydromorphone (Dilaudid). The patients pain is
suspected to be possibly stress or anxiety-related given that prior cardiac evaluations were relatively unremarkable. The patients primary change over is Dr. Charles, and he follows up with various specialists, including an internet sales associate,
for his condition.
EMERGENCY TREATMENTS ADMINISTERED
Dilaudid was administered to alleviate the patients chest pain.
PLAN
1. Repeat cardiac blood work to monitor for any acute changes.
2. Patient to follow-up with primary change over, Dr. Corbett, for further evaluation and management of cardiac concerns.
3. Continue current pain management regimen with fentanyl patch as prescribed by auto body painter, Dr. Dang.
FOLLOW-UP INSTRUCTIONS
Patient advised to schedule a follow-up visit with his primary change over, Dr. Corbett.
MEDICATION RECONCILIATION
- Fentanyl patch for ongoing pain management.
- One dose of hydromorphone (Dilaudid) administered in the emergency department.
MEDICAL DECISION MAKING
- Complexity of Data Reviewed: Chronic conditions affecting care include suspected ventricular fibrillation and pain requiring management with a fentanyl patch. Differential Diagnosis includes myocardial infarction, aortic dissection, pulmonary
embolism, unstable angina, thoracic spine radiculopathy, gastroesophageal reflux disease, muscle strain, anxiety or panic attack, costochondritis, pericarditis.
- Data:
Category 1: Cardiac blood work was reviewed. Device interrogation was ordered and reviewed to monitor rhythm disturbances.
- Risk:
Consideration of Admission/Observation: Escalation of care including admission/observation was considered given the complexity and risk of the patients presenting complaint, exam findings, and/or their underlying comorbidities. However, ultimately I
feel the patient is safe for outpatient management with close follow-up. Reasoning: Work-up is reassuring, and does not reveal any acute life/organ threatening processes, patients symptoms well controlled upon reevaluation, reexamination is
reassuring, vitals are stable, patient agreeable with discharge, reliable for follow-up.
DIAGNOSIS
- Chest pain, unspecified (ICD-10: R07.9)
- SI in past
Past History
Past History
ED Past Medical History: Arrthythmia, NIDDM and Other (PE)
ED Past Surgical History: Orthopedic and Other
Social History
Tobacco: Non-smoker
Alcohol: None
Drug: None
Personal:
Living: with family
Employment: Employed
Phy Exam
Physical Exam
Physical Exam:
See HPI
Scores
Heart Score for Chest Pain Patients
STEMI patient?: Not applicable
Course
Orders/Labs/Results
Orders:
Orders
12/10/24 16:30
EKG [Electrocardiogram (*1)] Urgent
Reason for Study: Chest Pain
12/10/24 16:31
EKG- Treatment ONCE
12/10/24 16:50
Complete Blood Count/With Diff Urgent
Comprehensive Metabolic Panel Urgent
Lipase Urgent
Prothrombin Time Urgent
Troponin I Urgent
12/10/24 20:00
0.9% Sodium Chloride 1000 ml [Nss] 1,000 ml IV BOLUS
HYDROmorphone [Dilaudid] 1 mg IV NOW STA
Ondansetron Injectable [Zofran] 4 mg IV NOW STA
12/10/24 20:07
1:1 Observation - Suicide/ Violent Behavior As Directed
Crisis Consult Urgent
Reason for Consult: +SI
12/10/24 20:18
Troponin I Urgent
Abnormal Lab Results
12/10/24
16:50
RBC 4.40 L 10^6/uL
(4.70-6.10)
Hgb 12.8 L g/dL
(13.0-18.0)
Hct 36.9 L %
(39.0-52.0)
Abs Immat Gran (auto) 0.1 H 10^3/uL
(0-0.05)
Immature Gran % 0.9 H %
(0-0.5)
PT 28.9 H Sec
(11.4-14.6)
BUN 23 H mg/dl
(9-20)
Glucose 132 H mg/dl
(70-99)
12/10/24 16:50
12/10/24 16:50
Vital Signs
Initial and Last Documented VS:
Initial Vital Signs
Temp Pulse Resp BP Pulse Ox
36.9 C 99 18 124/91 98
12/10/24 16:37 12/10/24 16:37 12/10/24 16:37 12/10/24 16:37 12/10/24 16:37
Last Documented Vital Signs
Temp Pulse Resp BP Pulse Ox
36.9 C 88 17 142/91 95
12/10/24 16:37 12/10/24 21:15 12/10/24 21:15 12/10/24 21:00 12/10/24 21:15
*Pulse Oximetry
SaO2: 98
Oxygen Mode of Delivery: Room air
Patient hypoxic: no
*Critical Care Note
Total Time (30-74mins, 75-104mins- exclusive of procedures): Not Applicable
ED Attending Note
-
Portions of this chart may have been created with voice recognition software.� Occasional wrong word or��sound alike� substitutions may have occurred due to the inherent limitations of voice recognition software.
Discharge Plan
Departure
Patient Disposition: Home (Routine Discharge)
Date of Disposition: 12/10/24
Time of Disposition: 21:35
Patient with high blood pressure during this ER visit?: Yes
Discharge Problem:
Chest pain
Instructions: Chest Pain NON-DHP Bark Spudder Follow Up, BLOOD PRESSURE
Prescriptions:
No Action
venlafaxine 150 mg capsule,extended release 24hr
150 mg PO DAILY
warfarin 5 mg tablet
7.5 mg PO DAILY
valsartan 320 mg tablet
320 mg PO DAILY
buspirone 15 mg tablet
30 mg PO BID
rosuvastatin 20 mg tablet
20 mg PO HS
lorazepam 1 mg Tablet
1 mg PO BID PRN (Reason: anxiety)
hydralazine 10 mg Tablet
10 mg PO TID
amlodipine 5 mg Tablet
5 mg PO HS
famotidine [Pepcid AC] 20 mg Tablet
20 mg PO DAILY
pantoprazole 40 mg Tablet,Delayed Release (Dr/Ec)
40 mg PO BID
olanzapine 15 mg Tablet
15 mg PO HS
midodrine 2.5 mg Tablet
2.5 mg PO TID
fludrocortisone 0.1 mg Tablet
0.05 mg PO DAILY
pindolol 5 mg Tablet
5 mg PO BID
desmopressin 0.1 mg Tablet
0.1 mg PO .DAILYEVERYMONDAY
guanfacine 1 mg Tablet Extended Release 24 Hr
1 mg PO QPM
potassium chloride 20 mEq Tablet Extended Release
20 meq PO DAILY
magnesium oxide 400 mg magnesium Tablet
400 mg PO HS
Referrals:
Jennifer Vasquez DO [Family Provider, Family Practice]
Chilango Charles MD [Non-Admitting Privileges, Internal Medicine]
Activity Restrictions/Additional Instructions:
Follow-up with your change over. 2 troponins were normal tonight. Your INR is 2.7. I also recommend that you follow-up as recommended by crisis.
Interventions
Interventions:
*Risk Screen - Suicide Last Done: 12/10/24 20:06
*General Assessment Last Done: 12/10/24 16:37
*Neglect/Abuse Screening Last Done: 12/10/24 16:37
*ED- Fall Risk Assessment Last Done: 12/10/24 20:04
*ED COVID-19 Vaccine History Last Done: 12/10/24 16:37
ED- Cardiac Assessment Last Done: 12/10/24 21:19
Discharge Date and Time
Print Language: PERUVIAN
[2024-12-10 19:52] VITALS: BP 145/107
[2024-12-10 20:00] VITALS: BP 143/102
[2024-12-10 20:08] VITALS: BMI 40.7
[2024-12-10] MEDS: DILAUDID 1 MG IV (20:11)
[2024-12-10] MEDS: ZOFRAN 4 MG IV (20:12)
[2024-12-10] MEDS: NSS 1000 IV (20:13)
[2024-12-10 20:57] LABS: Troponin I < 0.012 ng/ml
[2024-12-10 21:00] VITALS: BP 142/91
[2024-12-10 22:00] VITALS: BP 136/101
== END 2024-12-10 22:21 | disposition home or self-care (01) ==
LOC: EMR 16:28
PROVIDERS: Emergency Medicine; EMERGENCY PHYSICIAN Emergency Medicine; FAMILY PHYSICIAN Family Medicine
DX: R07.9 Chest pain, unspecified (principal); I48.91 Unspecified atrial fibrillation; E11.9 Type 2 diabetes mellitus without complications; G89.29 Other chronic pain; Z79.01 Long term (current) use of anticoagulants; Z95.810 Presence of automatic (implantable) cardiac defibrillator; Z86.711 Personal history of pulmonary embolism
CPT/HCPCS: 99284; 93288; 96374; 96375; 96361; 80053; 83690; 84484; 85025; 85610; 93005

== ENCOUNTER 2024-12-18 15:52 | Emergency (ER) | payer OTHER, SELFPAY ==
[2024-12-18] VITALS (10 sets, daily range): BP systolic 144–174; BP diastolic 71–110; BMI 40.2
[2024-12-18 16:19] LABS: Hematocrit 36.7 % (39.0-52.0); Hemoglobin 12.4 g/dL (13.0-18.0); Mean Corp Hgb Conc. 33.8 g/dL (33.0-37.0); Mean Corpuscular Volume 84.0 fL (80.0-94.0); Nucleated Red Blood Cells % 0 % (-); Platelet Count 216 10^3/uL (130-400); Red Cell Dist. Width 13.9 % (11.5-14.5)
[2024-12-18 16:29] LABS: INR 2.63; PT 28.1 Sec (11.4-14.6)
--- NOTE | 2024-12-18 16:34 | ED.GENMED ---
History of Present Illness
General
Chief Complaint: Chest Pain
Source: patient
Exam Limitations: none
Time Seen by Provider: 12/18/24 16:01
Nursing documentation reviewed up to this point in time: agreed with
History of Present Illness
History of Present Illness:
54-year-old male past medical history of A-fib currently with pacemaker in place, previous PE currently on Coumadin, diabetes presenting to the emergency department today with concerns of left-sided chest pain as well as a syncopal episode.
patient claims that the syncopal episode was a few hours prior to arrival. He felt lightheaded after go to the bathroom fell to the ground his heard a thud and found him on the ground. He was able to stand up at that point felt okay at the
time a few hours later noticed left-sided sharp crushing chest pain with radiation down his left arm and also had some pain to his low back but does have some occasional low back pain. He has had similar symptoms multiple times over the past year
with no specific explanation as to why he is having the symptoms. He does follow with a pain management and is on a fentanyl patch. He has had a recent echo on 10/24/2024, 2 months ago that did not show any significant findings. He also had a
documented normal heart catheterization in the past year this was done at an outside hospital. He claims to have ongoing left-sided chest pain at this point did not respond to 3 doses of nitro prior to arrival. He will also did give dose of
fentanyl via EMS and route. This seemed to improve symptoms slightly.
Past History
Past History
ED Past Medical History: Arrthythmia, NIDDM and Other (PE)
ED Past Surgical History: Orthopedic and Other
Social History
Tobacco: Non-smoker
Alcohol: None
Drug: None
Personal:
Living: with family
Employment: Employed
Review of Systems
Review of Systems
Allergies reviewed?: Yes
All Other Systems: ROS reviewed and negative except as documented in HPI and ROS
Phy Exam
Physical Exam
Physical Exam:
GENERAL: Alert , in no apparent distress
EYE: pupils equal and reactive
NECK: Supple, no significant adenopathy.
ENT: o/p clr, mmm.
CARDIAC: Regular rate and rhythm .
LUNGS: Clear breath sounds bilaterally, no acute respiratory distress, no wheezes/rales/rhonchi
ABDOMEN: Soft, without focal tenderness, no r/g, no cvat
NEUROLOGICAL: Alert and oriented, no focal neuro deficits
SKIN: Warm and dry, skin intact.
MUSCULOSKELETAL: No edema, well perfused.
PSYCH: Normal and appropriate interaction.
Scores
Heart Score for Chest Pain Patients
STEMI patient?: No
History: Slightly or Non-Suspicious
ECG: Nonspecific Repolarization
Age: >45 - <65 years
Risk Factors: >/= 3 Risk Factors or History of CAD
Troponin: </= Normal Limit
Heart Score for Chest Pain Patients: 4
Heart Score Risk: 20.3% MACE over next 6 weeks
Course
Orders/Labs/Results
Orders:
Orders
12/18/24 15:55
Electrocardiogram (*1) Urgent
Reason for Study: Chest Pain
Cardiac Monitoring- Treatment ONCE
EKG- Treatment ONCE
IV Insert/Care/Rem.- Treatment PRN
O2 Therapy [RESP] Urgent
Titrate/Wean O2 to maintain O2 sat greater than (%): 90
Special Instructions: Maintain sats >/=90%
Pulse Ox/spot Check [RESP] Urgent
Quantity: 1
Special Instructions: ON ROOM AIR
12/18/24 15:56
Interrogate Pacemaker- Treatment ONCE
12/18/24 16:05
Complete Blood Count/With Diff Urgent
Comprehensive Metabolic Panel Urgent
PT/INR [Prothrombin Time] Urgent
Troponin I Urgent
12/18/24 17:05
CT Cervical Spine W/o Iv Contr Urgent
Comment:
Reason For Exam: fall syncopoe
CT Chest/abd/pelvis Angio W/wo Urgent
Comment:
Reason For Exam: chest pain, arm pain back pain severe, syncope
CT Head W/o Iv Contrast Urgent
Comment:
Reason For Exam: fall/syncope on coumadin
12/18/24 17:31
HYDROmorphone [Dilaudid] 1 mg IV NOW STA
12/18/24 18:39
0.9% Sodium Chloride 1000 ml [Nss] 1,000 ml IV BOLUS
12/18/24 19:15
Electrocardiogram (*1) Urgent
Reason for Study: Chest Pain
EKG- Treatment ONCE
12/18/24 19:47
Troponin I Urgent
Abnormal Lab Results
12/18/24
16:05
RBC 4.37 L 10^6/uL
(4.70-6.10)
Hgb 12.4 L g/dL
(13.0-18.0)
Hct 36.7 L %
(39.0-52.0)
Absolute Monos (auto) 0.7 H 10^3/uL
(0.1-0.6)
Lymphocytes % 19.7 L %
(20.5-51.1)
PT 28.1 H Sec
(11.4-14.6)
Chloride 108 H mmol/L
(98-107)
Glucose 123 H mg/dl
(70-99)
12/18/24 16:05
12/18/24 16:05
Vital Signs
Initial and Last Documented VS:
Initial Vital Signs
Temp Pulse Resp BP Pulse Ox
98.8 F 90 20 144/90 97
12/18/24 15:56 12/18/24 15:56 12/18/24 15:56 12/18/24 15:56 12/18/24 15:56
Last Documented Vital Signs
Temp Pulse Resp BP Pulse Ox
98.8 F 95 16 147/91 96
12/18/24 16:19 12/18/24 20:15 12/18/24 20:15 12/18/24 20:00 12/18/24 20:15
MDM/Problems Addressed
MDM/Problems Addressed:
54-year-old male presenting to the emergency department today with concerns of left-sided chest pressure with radiation down his left arm. He also had a syncopal episode a few hours prior to the chest pain after going to the bathroom he did have
preceding lightheadedness. Does have similar episodes in the past he was diagnosed with POTS. Additionally had extensive cardiac workup over the past year with no explanation of patient's chest pain that he claims is very similar to previous
episode. Chest pain improved after receiving IV pain medication here. Vital signs normal throughout ER stay EKG without acute changes [address] scan of the head neck as well as chest abdomen pelvis. All incidental findings
found on the CT chest abdomen pelvis were discussed with the patient and he will follow-up closely for. He does have a known history of the iliac aneurysm that he does follow-up for as an outpatient. Otherwise at this point patient stable for
multiple hours here stable for close outpatient follow-up. Return precautions given.
*Pulse Oximetry
SaO2: 97
Oxygen Mode of Delivery: Room air
Patient hypoxic: no (96)
*Critical Care Note
Total Time (30-74mins, 75-104mins- exclusive of procedures): Not Applicable
ED Attending Note
-
Portions of this chart may have been created with voice recognition software.� Occasional wrong word or��sound alike� substitutions may have occurred due to the inherent limitations of voice recognition software.
Discharge Plan
Departure
Patient Disposition: Home (Routine Discharge)
Date of Disposition: 12/18/24
Time of Disposition: 20:45
Patient with high blood pressure during this ER visit?: Yes
Condition: Good
Covid-19: Not Applicable
Discharge Problem:
Chest pain, Syncope
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
Prescriptions:
No Action
venlafaxine 150 mg capsule,extended release 24hr
150 mg PO DAILY
warfarin 5 mg tablet
7.5 mg PO DAILY
valsartan 320 mg tablet
320 mg PO DAILY
buspirone 15 mg tablet
30 mg PO BID
rosuvastatin 20 mg tablet
20 mg PO HS
lorazepam 1 mg Tablet
1 mg PO BID PRN (Reason: anxiety)
hydralazine 10 mg Tablet
10 mg PO TID
amlodipine 5 mg Tablet
5 mg PO HS
famotidine [Pepcid AC] 20 mg Tablet
20 mg PO DAILY
pantoprazole 40 mg Tablet,Delayed Release (Dr/Ec)
40 mg PO BID
olanzapine 15 mg Tablet
15 mg PO HS
midodrine 2.5 mg Tablet
2.5 mg PO TID
fludrocortisone 0.1 mg Tablet
0.05 mg PO DAILY
pindolol 5 mg Tablet
5 mg PO BID
desmopressin 0.1 mg Tablet
0.1 mg PO .DAILYEVERYMONDAY
guanfacine 1 mg Tablet Extended Release 24 Hr
1 mg PO QPM
potassium chloride 20 mEq Tablet Extended Release
20 meq PO DAILY
magnesium oxide 400 mg magnesium Tablet
400 mg PO HS
Referrals:
Jennifer Vasquez, DO [Family Provider, Family Practice]
Activity Restrictions/Additional Instructions:
You came to the emergency department today with multiple symptoms. Here had reassuring assessment. Please follow closely as an outpatient. Return for any worsening, new or concerning symptoms.
Interventions
Interventions:
*Risk Screen - Suicide Last Done: 12/18/24 15:56
*General Assessment Last Done: 12/18/24 15:56
*Neglect/Abuse Screening Last Done: 12/18/24 15:56
*ED- Fall Risk Assessment Last Done: 12/18/24 15:56
*ED COVID-19 Vaccine History Last Done: 12/18/24 15:56
ED- Cardiac Assessment Last Done: 12/18/24 15:56
Discharge Date and Time
Print Language: DUTCH
[2024-12-18 16:37] LABS: ALT (SGPT) 36 U/L (0-50); AST (SGOT) 27 U/L (17-59); Albumin 4.2 g/dl (3.5-5.0); Alkaline Phosphatase 91 U/L (38-126); Blood Urea Nitrogen 14 mg/dl (9-20); Calcium 9.5 mg/dl (8.4-10.2); Carbon Dioxide 26 mmol/L (22-30); Chloride 108 mmol/L (98-107); Estimated Creatinine Clearance > 125 ml/min; Glucose 123 mg/dl (70-99); Potassium 4.3 mmol/L (3.5-5.1); Sodium 141 mmol/L (135-145); Total Protein 6.9 g/dl (6.3-8.2); eGFR > 60.00
[2024-12-18 16:41] LABS: Troponin I < 0.012 ng/ml
[2024-12-18] MEDS: DILAUDID 1 MG IV (17:46)
[2024-12-18] MEDS: NSS 1000 IV (18:57)
[2024-12-18 20:28] LABS: Troponin I < 0.012 ng/ml
== END 2024-12-18 20:58 | disposition home or self-care (01) ==
LOC: EMR 15:52
PROVIDERS: Physician Assistant; EMERGENCY PHYSICIAN Emergency Medicine; FAMILY PHYSICIAN Family Medicine
DX: R07.9 Chest pain, unspecified (principal); R55 Syncope and collapse; E11.9 Type 2 diabetes mellitus without complications; I48.91 Unspecified atrial fibrillation; Z86.711 Personal history of pulmonary embolism; Z95.810 Presence of automatic (implantable) cardiac defibrillator; Z79.01 Long term (current) use of anticoagulants
CPT/HCPCS: 96374; 96361; 99284; 70450; 71275; 72125; 74174; 80053; 84484; 85025; 85610; 93005; Q9967

== ENCOUNTER 2024-12-21 13:29 | Emergency (ER) | payer OTHER, SELFPAY ==
[2024-12-21 13:30] VITALS: BMI 41.2
[2024-12-21 13:33] VITALS: BP 149/99
--- NOTE | 2024-12-21 13:49 | ED.GENMED ---
History of Present Illness
General
Chief Complaint: Chest Pain
Source: patient
Exam Limitations: none
Time Seen by Provider: 12/21/24 13:43
Nursing documentation reviewed up to this point in time: agreed with
History of Present Illness
History of Present Illness:
54-year-old male with past medical history of A-fib, pacemaker PE on Coumadin diabetes, Vfib, chronic pain on fentanyl patch presents to the ER with chest pain. He reports he was doing mental health therapy developed chest pain and went to his
arm/jaw . He reports has had this pain multiple times in the past and they feel that this is his chronic pain'. He has had he reports he has had multiple cardiac workups and they were negative. He has no shortness of breath. He continues to have
pain. He did not take any medicine for discomfort and is asking for something for his pain.
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
He has been here multiple times for chest pain previously and was admitted October 2024. Cardiology felt that this pain was nonischemic.
It is documented that there was a concern for possible opiate use disorder or drug-seeking behavior. He reports he is followed by pain management and on fentanyl for chronic pain. This chest pain is similar to his previous episodes of chronic
pain.
He was monitored here and presented awake alert in no acute distress with 2 negative cardiac troponins he does report he has had full cardiac workup at outside institutions which were negative
Past History
Past History
ED Past Medical History: Arrthythmia, NIDDM and Other (PE)
ED Past Surgical History: Orthopedic and Other
Social History
Tobacco: Non-smoker
Alcohol: None
Drug: None
Personal:
Living: with family
Employment: Employed
Phy Exam
General Physical Exam
General Presentation: well appearing
General age: appears stated age and appears older than age
General Skin: warm and dry
General Habitus: normal
General Mental: alert
General Hydration: appears well hydrated
Cardiovascular Exam
Cardiovascular Exam: regular rate/rhythm, no murmur and normal peripheral pulses
Pulmonary Exam
Pulmonary Exam: lungs clear and no respiratory distress
Neurological Exam
Neurological Exam: alert and oriented x3
Musculoskeletal Exam
Musculoskeletal Exam: full ROM
Skin Exam
Skin Exam: normal color and warm/dry
Psychiatric Exam
Psychiatric Exam: normal mood/affect
Scores
Heart Score for Chest Pain Patients
STEMI patient?: Not applicable
Course
Orders/Labs/Results
Orders:
Orders
12/21/24 13:31
Electrocardiogram (*1) Urgent
Reason for Study: Chest Pain
EKG- Treatment ONCE
12/21/24 13:48
Complete Blood Count/With Diff Urgent
Comprehensive Metabolic Panel Urgent
INR [Prothrombin Time] Urgent
Troponin I Urgent
12/21/24 14:12
HYDROmorphone [Dilaudid] 1 mg IV NOW STA
Chest [CR Chest - 2 Views ] Urgent
Comment:
Reason For Exam: cp
12/21/24 15:56
EKG- Treatment ONCE
12/21/24 16:58
Troponin I Urgent
12/21/24 17:00
Electrocardiogram (*1) Urgent
Reason for Study: Chest Pain
Abnormal Lab Results
12/21/24
13:48
RBC 4.41 L 10^6/uL
(4.70-6.10)
Hgb 12.5 L g/dL
(13.0-18.0)
Hct 37.1 L %
(39.0-52.0)
Lymphocytes % 16.6 L %
(20.5-51.1)
PT 30.4 H Sec
(11.4-14.6)
Glucose 171 H mg/dl
(70-99)
12/21/24 13:48
12/21/24 13:48
Vital Signs
Initial and Last Documented VS:
Initial Vital Signs
Temp Pulse Resp BP Pulse Ox
97.7 F 85 16 149/99 97
12/21/24 13:33 12/21/24 13:33 12/21/24 13:33 12/21/24 13:33 12/21/24 13:33
Last Documented Vital Signs
Temp Pulse Resp BP Pulse Ox
97.7 F 80 15 147/84 97
12/21/24 13:33 12/21/24 17:45 12/21/24 17:45 12/21/24 16:00 12/21/24 17:45
MDM/Problems Addressed
Differential Diagnosis Includes:
Not limited to ACS chronic pain musculoskeletal pain
MDM/Problems Addressed:
As documented patient is a 54 yr old male with history of chronic pain chest pain while in psychiatric therapy today he does report radiate to his jaw and arm. no SOB. He does report he has a history of chronic chest pain and is on chronic pain
medication. He was admitted here in October and cardiology felt that this was nonischemic chest pain and concern for drug-seeking behavior. He is on narcotics for chronic chest pain and is on a fentanyl patch followed by pain management. He was
monitored here stable no acute distress 2 negative prior troponins, mild cardiomegaly on chest x-ray.
EKG shows normal sinus rhythm heart rate 81 with PVCs occasionally no change.
Will discharge with followed by pain management along with his drawer liner.
Chronic conditions affecting care:
Chronic pain A-fib defibrillator
*Radiology
Radiology exam reviewed: radiology read reviewed
*Pulse Oximetry
SaO2: 97
Oxygen Mode of Delivery: Room air
Patient hypoxic: no
*EKG
Interpreted by ED Provider?: Yes
Heart Rate: 81
Rate: normal
Rhythm: sinus
Ischemia: other (Sinus rhythm with PVCs no change)
*Critical Care Note
Total Time (30-74mins, 75-104mins- exclusive of procedures): Not Applicable
ED Attending Note
-
Portions of this chart may have been created with voice recognition software.� Occasional wrong word or��sound alike� substitutions may have occurred due to the inherent limitations of voice recognition software.
Discharge Plan
Departure
Patient Disposition: Home (Routine Discharge)
Date of Disposition: 12/21/24
Time of Disposition: 18:00
Patient with high blood pressure during this ER visit?: Yes
Condition: Fair
Covid-19: Not Applicable
Discharge Problem:
Chest pain
Instructions: Chest Pain NON-DHP [employer] Follow Up, BLOOD PRESSURE
Prescriptions:
No Action
venlafaxine 150 mg capsule,extended release 24hr
150 mg PO DAILY
warfarin 5 mg tablet
7.5 mg PO DAILY
valsartan 320 mg tablet
320 mg PO DAILY
buspirone 15 mg tablet
30 mg PO BID
rosuvastatin 20 mg tablet
20 mg PO HS
lorazepam 1 mg Tablet
1 mg PO BID PRN (Reason: anxiety)
hydralazine 10 mg Tablet
10 mg PO TID
amlodipine 5 mg Tablet
5 mg PO HS
famotidine [Pepcid AC] 20 mg Tablet
20 mg PO DAILY
pantoprazole 40 mg Tablet,Delayed Release (Dr/Ec)
40 mg PO BID
olanzapine 15 mg Tablet
15 mg PO HS
midodrine 2.5 mg Tablet
2.5 mg PO TID
fludrocortisone 0.1 mg Tablet
0.05 mg PO DAILY
pindolol 5 mg Tablet
5 mg PO BID
desmopressin 0.1 mg Tablet
0.1 mg PO .DAILYEVERYMONDAY
guanfacine 1 mg Tablet Extended Release 24 Hr
1 mg PO QPM
potassium chloride 20 mEq Tablet Extended Release
20 meq PO DAILY
magnesium oxide 400 mg magnesium Tablet
400 mg PO HS
Referrals:
Jennifer Vasquez DO [Family Provider, Family Practice]
Stand Alone Forms: Return to Work
Activity Restrictions/Additional Instructions:
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 Return if any worsening of symptoms.
Interventions
Interventions:
*Risk Screen - Suicide Last Done: 12/21/24 13:33
*General Assessment Last Done: 12/21/24 13:33
*Neglect/Abuse Screening Last Done: 12/21/24 13:33
*ED- Fall Risk Assessment Last Done: 12/21/24 13:33
*ED COVID-19 Vaccine History Last Done: 12/21/24 13:33
ED- Cardiac Assessment Last Done: 12/21/24 13:32
Discharge Date and Time
Print Language: ROMANSH
[2024-12-21 14:00] VITALS: BP 142/92
[2024-12-21 14:04] LABS: Hematocrit 37.1 % (39.0-52.0); Hemoglobin 12.5 g/dL (13.0-18.0); Mean Corp Hgb Conc. 33.7 g/dL (33.0-37.0); Mean Corpuscular Volume 84.1 fL (80.0-94.0); Nucleated Red Blood Cells % 0 % (-); Platelet Count 206 10^3/uL (130-400); Red Cell Dist. Width 13.6 % (11.5-14.5)
[2024-12-21 14:09] LABS: INR 2.86; PT 30.4 Sec (11.4-14.6)
[2024-12-21 14:20] LABS: Troponin I < 0.012 ng/ml
[2024-12-21 14:24] LABS: ALT (SGPT) 36 U/L (0-50); AST (SGOT) 25 U/L (17-59); Albumin 4.2 g/dl (3.5-5.0); Alkaline Phosphatase 82 U/L (38-126); Blood Urea Nitrogen 12 mg/dl (9-20); Calcium 8.9 mg/dl (8.4-10.2); Carbon Dioxide 25 mmol/L (22-30); Chloride 107 mmol/L (98-107); Estimated Creatinine Clearance > 125 ml/min; Glucose 171 mg/dl (70-99); Potassium 4.2 mmol/L (3.5-5.1); Sodium 139 mmol/L (135-145); Total Protein 6.8 g/dl (6.3-8.2); eGFR > 60.00
[2024-12-21] MEDS: DILAUDID 1 MG IV (14:48)
[2024-12-21 15:01] VITALS: BP 149/99
[2024-12-21 16:00] VITALS: BP 147/84
[2024-12-21 17:30] LABS: Troponin I < 0.012 ng/ml
[2024-12-21 18:00] VITALS: BP 137/89
== END 2024-12-21 18:32 | disposition home or self-care (01) ==
LOC: EMR 13:29
PROVIDERS: Nurse Practitioner; EMERGENCY PHYSICIAN Emergency Medicine; FAMILY PHYSICIAN Family Medicine
DX: R07.9 Chest pain, unspecified (principal); R03.0 Elevated blood-pressure reading, without diagnosis of hypertension; I49.3 Ventricular premature depolarization; E11.9 Type 2 diabetes mellitus without complications; I48.91 Unspecified atrial fibrillation; G89.29 Other chronic pain; Z79.01 Long term (current) use of anticoagulants; Z79.891 Long term (current) use of opiate analgesic; Z86.79 Personal history of other diseases of the circulatory system; Z95.0 Presence of cardiac pacemaker
CPT/HCPCS: 99284; 96374; 71046; 80053; 84484; 85025; 85610; 93005

== ENCOUNTER 2025-01-06 11:51 | Emergency (ER) | payer OTHER, SELFPAY ==
[2025-01-06] VITALS (7 sets, daily range): BP systolic 135–157; BP diastolic 92–112; BMI 40.0
[2025-01-06 12:20] LABS: Hematocrit 36.1 % (39.0-52.0); Hemoglobin 12.2 g/dL (13.0-18.0); Mean Corp Hgb Conc. 33.8 g/dL (33.0-37.0); Mean Corpuscular Volume 84.0 fL (80.0-94.0); Nucleated Red Blood Cells % 0 % (-); Platelet Count 221 10^3/uL (130-400); Red Cell Dist. Width 13.9 % (11.5-14.5)
[2025-01-06 12:34] LABS: INR 2.90; PT 30.3 Sec (11.4-14.6)
[2025-01-06 12:35] LABS: APTT 40.2 Sec (23.4-35.0)
[2025-01-06 12:38] LABS: ALT (SGPT) 32 U/L (0-50); AST (SGOT) 24 U/L (17-59); Albumin 4.4 g/dl (3.5-5.0); Alkaline Phosphatase 73 U/L (38-126); Blood Urea Nitrogen 13 mg/dl (9-20); Calcium 8.9 mg/dl (8.4-10.2); Carbon Dioxide 25 mmol/L (22-30); Chloride 108 mmol/L (98-107); Estimated Creatinine Clearance > 125 ml/min; Glucose 146 mg/dl (70-99); Potassium 4.5 mmol/L (3.5-5.1); Sodium 140 mmol/L (135-145); Total Protein 7.1 g/dl (6.3-8.2); eGFR > 60.00
[2025-01-06 12:44] LABS: Troponin I < 0.012 ng/ml
--- NOTE | 2025-01-06 13:28 | ED.GENMED ---
History of Present Illness
General
Chief Complaint: Fainting/Passed Out
Source: patient
Exam Limitations: none
Time Seen by Provider: 01/06/25 13:12
History of Present Illness
History of Present Illness:
54-year-old male with history of V-fib now with defibrillator pacemaker on Coumadin presents for evaluation following syncopal episode. He has chronic chest pain. He has a fentanyl patch for this reason. He was in his psychologist office this
morning and was developing chest pain and lightheadedness. He stood up to go to the bathroom and he passed out. He thinks he hit his head on the door. He notes a headache. He remembers waking up on the ground. He has been having ongoing chest
pain since then. He follows with a chief human resources officer through [facility]. He last had a heart catheterization about a year ago which was unrevealing and did not require any stents. He has not had any stents placed. He was recently at [facility] earlier this week for the same issue and has been here twice in this month for the same issue. No recent travel or surgery. No leg swelling or calf pain. He does note a history of pulmonary embolism that occurred while he was on Eliquis
which prompted the change to Coumadin. He was given 2 sublingual nitroglycerin tablets on the right here without any relief.
Past History
Past History
ED Past Medical History: Arrthythmia, NIDDM and Other (PE)
ED Past Surgical History: Orthopedic and Other
Social History
Tobacco: Non-smoker
Alcohol: None
Drug: None
Personal:
Living: with family
Employment: Employed
Phy Exam
Physical Exam
Physical Exam:
General: Somewhat unkempt but well-developed male no acute respiratory distress
HEENT normal cephalic abrasion noted to the forehead pupils equal round reactive to light
Heart: Regular rate and rhythm
Lungs: Clear no wheeze
Extremities: No cyanosis or edema
Skin is warm no rash
Neurologic exam: Alert and oriented no facial asymmetry
Course
Orders/Labs/Results
Orders:
Orders
01/06/25 11:55
Electrocardiogram (*1) Urgent
Reason for Study: Syncope
EKG- Treatment ONCE
01/06/25 12:13
Complete Blood Count/With Diff Urgent
Comprehensive Metabolic Panel Urgent
D-Dimer Urgent
Comment: ADD ON
Lipase Urgent
Comment: ADD ON
PT/INR [Prothrombin Time] Urgent
Is patient on Coumadin/Warfarin?: No
Comment: [email or web address]
PTT Urgent
Troponin I Urgent
01/06/25 13:27
CT Head W/o Iv Contrast Urgent
Comment:
Reason For Exam: fall
Interrogate Pacemaker- Treatment ONCE
01/06/25 13:49
Add On- LAB Urgent
Tests Added?: lipase
01/06/25 14:07
HYDROmorphone [Dilaudid] 0.5 mg IV NOW STA
01/06/25 14:09
Add On- LAB Urgent
Tests Added?: d-dimer
01/06/25 16:33
Troponin I Urgent
01/06/25 16:54
HYDROmorphone [Dilaudid] 0.5 mg IV NOW STA
Abnormal Lab Results
01/06/25
12:13
RBC 4.30 L 10^6/uL
(4.70-6.10)
Hgb 12.2 L g/dL
(13.0-18.0)
Hct 36.1 L %
(39.0-52.0)
Monocytes % 9.7 H %
(1.7-9.3)
PT 30.3 H Sec
(11.4-14.6)
APTT 40.2 H Sec
(23.4-35.0)
Chloride 108 H mmol/L
(98-107)
Glucose 146 H mg/dl
(70-99)
01/06/25 12:13
01/06/25 12:13
Vital Signs
Initial and Last Documented VS:
Initial Vital Signs
Temp Pulse Resp BP Pulse Ox
98.2 F 89 18 154/104 97
01/06/25 11:56 01/06/25 11:56 01/06/25 11:56 01/06/25 11:56 01/06/25 11:56
Last Documented Vital Signs
Temp Pulse Resp BP Pulse Ox
98.2 F 83 20 135/112 98
01/06/25 11:56 01/06/25 15:30 01/06/25 15:30 01/06/25 15:00 01/06/25 13:45
MDM/Problems Addressed
Differential Diagnosis Includes:
Patient here for recurrent syncope and chronic chest pain. Vital signs are stable EKG shows sinus rhythm without ischemic changes. INR 2.9. PE extremely unlikely given the chronicity of the pain and therapeutic state with Coumadin. He did hit
his head when he fell today. Will order CT of the head to evaluate for intracranial hemorrhage. Troponin here is undetectable. Will recheck. Will interrogate pacemaker. Patient requesting something for pain. With documented in the chart that
he is here frequently for ongoing chest pain of which she has a fentanyl patch for but this does not seem to be helping.
*Pulse Oximetry
SaO2: 98
Oxygen Mode of Delivery: Room air
Patient hypoxic: no
*Critical Care Note
Total Time (30-74mins, 75-104mins- exclusive of procedures): Not Applicable
Update Note
Update Note:
Initial troponin undetectable CT head negative D-dimer negative. Do not suspect PE he is therapeutic with INR with a negative D-dimer. Patient has chronic chest pain. He also has recurrent syncope. At this point I do not believe admission will
change anything. He was given a dose of pain medicine while he was here but will be advised to follow-up with his pain management doctor and chief human resources officer for further evaluation. He does have an appointment with his chief human resources officer in 3 days.
ED Attending Note
-
Portions of this chart may have been created with voice recognition software.� Occasional wrong word or��sound alike� substitutions may have occurred due to the inherent limitations of voice recognition software.
Discharge Plan
Departure
Patient Disposition: Home (Routine Discharge)
Date of Disposition: 01/06/25
Time of Disposition: 17:41
Patient with high blood pressure during this ER visit?: No
Discharge Problem:
Chest pain
Instructions: Syncope (Fainting) (DC)
Prescriptions:
No Action
venlafaxine 150 mg capsule,extended release 24hr
150 mg PO DAILY
warfarin 5 mg tablet
7.5 mg PO DAILY
valsartan 320 mg tablet
320 mg PO DAILY
buspirone 15 mg tablet
30 mg PO BID
rosuvastatin 20 mg tablet
20 mg PO HS
lorazepam 1 mg Tablet
1 mg PO BID PRN (Reason: anxiety)
hydralazine 10 mg Tablet
10 mg PO TID
amlodipine 5 mg Tablet
5 mg PO HS
famotidine [Pepcid AC] 20 mg Tablet
20 mg PO DAILY
pantoprazole 40 mg Tablet,Delayed Release (Dr/Ec)
40 mg PO BID
olanzapine 15 mg Tablet
15 mg PO HS
midodrine 2.5 mg Tablet
2.5 mg PO TID
fludrocortisone 0.1 mg Tablet
0.05 mg PO DAILY
pindolol 5 mg Tablet
5 mg PO BID
desmopressin 0.1 mg Tablet
0.1 mg PO .DAILYEVERYMONDAY
guanfacine 1 mg Tablet Extended Release 24 Hr
1 mg PO QPM
potassium chloride 20 mEq Tablet Extended Release
20 meq PO DAILY
magnesium oxide 400 mg magnesium Tablet
400 mg PO HS
Referrals:
Jennifer Vasquez DO [Family Provider, Family Practice]
Activity Restrictions/Additional Instructions:
Please follow-up with a chief human resources officer as planned. Return if worse
Interventions
Interventions:
*Risk Screen - Suicide Last Done: 01/06/25 12:00
*General Assessment Last Done: 01/06/25 12:00
*Neglect/Abuse Screening Last Done: 01/06/25 12:00
*ED- Fall Risk Assessment Last Done: 01/06/25 11:56
*ED COVID-19 Vaccine History Last Done: 01/06/25 11:56
ED- Cardiac Assessment Last Done: 01/06/25 12:00
ED- Neurological Assessment Last Done: 01/06/25 12:00
Discharge Date and Time
Print Language: [place]
[2025-01-06] MEDS: DILAUDID 0.5 MG IV ×2 (14:11→17:01)
[2025-01-06 14:26] LABS: Lipase 46 U/L (23-300)
[2025-01-06 14:31] LABS: D-Dimer < 0.27 ug/mlFEU (0.00-0.50)
[2025-01-06 17:08] LABS: Troponin I < 0.012 ng/ml
== END 2025-01-06 18:16 | disposition home or self-care (01) ==
LOC: EMR 11:51
PROVIDERS: Physician Assistant; EMERGENCY PHYSICIAN Emergency Medicine; FAMILY PHYSICIAN Family Medicine
DX: R07.89 Other chest pain (principal); R55 Syncope and collapse; E11.9 Type 2 diabetes mellitus without complications; Z79.01 Long term (current) use of anticoagulants; Z86.711 Personal history of pulmonary embolism; Z86.79 Personal history of other diseases of the circulatory system; Z95.0 Presence of cardiac pacemaker
CPT/HCPCS: 99284; 96374; 96376; 70450; 80053; 83690; 84484; 85025; 85379; 85610; 85730; 93005

== ENCOUNTER 2025-02-08 04:38 | Observation (INO) | payer OTHER, SELFPAY ==
[2025-02-07] VITALS (9 sets, daily range): BP systolic 111–154; BP diastolic 72–95; BMI 40.0
[2025-02-07 20:31] LABS: Hematocrit 34.6 % (39.0-52.0); Hemoglobin 11.5 g/dL (13.0-18.0); Mean Corp Hgb Conc. 33.2 g/dL (33.0-37.0); Mean Corpuscular Volume 85.0 fL (80.0-94.0); Nucleated Red Blood Cells % 0 % (-); Platelet Count 265 10^3/uL (130-400); Red Cell Dist. Width 13.5 % (11.5-14.5)
[2025-02-07 20:36] LABS: INR 2.80; PT 29.5 Sec (11.4-14.6)
[2025-02-07 20:37] LABS: APTT 46.9 Sec (23.4-35.0)
[2025-02-07 20:46] LABS: ALT (SGPT) 30 U/L (0-50); AST (SGOT) 24 U/L (17-59); Albumin 4.3 g/dl (3.5-5.0); Alkaline Phosphatase 87 U/L (38-126); Blood Urea Nitrogen 16 mg/dl (9-20); Calcium 9.0 mg/dl (8.4-10.2); Carbon Dioxide 26 mmol/L (22-30); Chloride 104 mmol/L (98-107); Estimated Creatinine Clearance 121 ml/min; Glucose 113 mg/dl (70-99); Potassium 4.3 mmol/L (3.5-5.1); Sodium 136 mmol/L (135-145); Total Protein 7.2 g/dl (6.3-8.2); eGFR > 60.00
[2025-02-07 20:59] LABS: Troponin I < 0.012 ng/ml
[2025-02-07] MEDS: NITROSTAT (SUBLINGUAL) 0.4 MG SL ×3 (22:25→22:37)
[2025-02-07] MEDS: MORPHINE SULFATE 4 MG IV (22:42)
[2025-02-07 23:33] LABS: Troponin I < 0.012 ng/ml
[2025-02-08] VITALS (8 sets, daily range): BP systolic 116–160; BP diastolic 68–98; BMI 39.8
[2025-02-08] MEDS: MORPHINE SULFATE 4 MG IV ×2 (00:27→03:03)
--- NOTE | 2025-02-08 03:16 | ED.GENMED ---
History of Present Illness
General
Chief Complaint: Chest Pain
Source: patient
Exam Limitations: none
Time Seen by Provider: 02/07/25 22:03
Nursing documentation reviewed up to this point in time: agreed with
History of Present Illness
History of Present Illness:
Note:
CHIEF COMPLAINT(S)
Chest pain radiating to the left arm and back.
HISTORY OF PRESENT ILLNESS
The patient is a 54-year-old male with a history of a dual defibrillator and pacemaker implantation presenting with left-sided chest pain that radiates to the left arm and back. 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 The patient describes the pain as a 'cramp' and rates it as an 8 out of 10 in severity. The pain has persisted without significant relief even after taking two nitroglycerin tablets. There is no associated shortness of breath,
fever, nausea, or vomiting. The patient denies any history of heart attacks but has previously experienced ventricular tachycardia (VT) as documented by a loop recorder, leading to the implantation of a pacemaker.
PAST MEDICAL AND SURGICAL HISTORY
The patient has a history of dual defibrillator and pacemaker implantation due to ventricular tachycardia.
SOCIAL DETERMINANTS AFFECTING HEALTH
The patient mentions being at work when the symptoms began, suggesting employment as a potential source of stress or exertion contributing to his condition.
MEDICATIONS
The patient has taken nitroglycerin for the current episode of chest pain.
REVIEW OF SYSTEMS
- Cardiovascular: Left-sided chest pain radiating to the left arm and back, persistent despite nitroglycerin.
- Respiratory: No shortness of breath.
- Gastrointestinal: No nausea or vomiting.
PHYSICAL EXAM
- General: Alert, mild acute distress. Large body habitus
- Skin: Warm, dry.
- Head: Normocephalic, atraumatic.
- Neck: Supple, trachea midline.
- Eye, Ears, Nose, Mouth, and Throat: Oral mucosa moist.
- Cardiovascular: Normal peripheral perfusion, no edema.
- Respiratory: Respirations are non-labored.
- Gastrointestinal: Abdomen non-distended.
- Back: Normal range of motion, normal alignment.
- Musculoskeletal: Normal range of motion, normal strength.
- Neurological: Alert and oriented to person, place, time, and situation, no focal neurological deficit observed.
- Psychiatric: Cooperative, appropriate mood and affect.
ALLERGIES
Allergic to NSAIDs (Nonsteroidal Anti-Inflammatory Drugs) with a reaction resembling an intense burn-like sensation and swelling.
PROBLEM LIST
- Acute Problems:
- Chest pain, likely cardiac in origin
- Chronic Problems:
- Ventricular tachycardia with dual defibrillator and pacemaker
PLAN
- Administer nitroglycerin and provide pain relief medication.
- Monitor patients response to initial nitroglycerin administration before proceeding with additional treatments.
- Further evaluation and management based on the patients response to treatment.
DIFFERENTIAL DIAGNOSIS
The Differential Diagnosis includes, in no particular order and is not limited to:
1. Acute Coronary Syndrome
2. Angina Pectoris
3. Myocardial Infarction
4. Aortic Dissection
5. Pulmonary Embolism
6. Pericarditis
7. Costochondritis
8. Gastroesophageal Reflux Disease
9. Musculoskeletal Pain
10. Anxiety Disorder
Disposition:
SUMMARY OF ENCOUNTER
The patient, a 54-year-old male with a known cardiac history, presented to the emergency department with left-sided chest pain radiating to the left arm and jaw. He has a dual-chambered pacemaker implanted at [facility] and a history of
pulmonary amyloidosis. Upon arrival, the pain had not subsided after administration of nitroglycerin. Morphine provided pain relief. The patient was closely monitored, and serial troponin tests were conducted.
DISPOSITION
Admission to the hospital service is warranted for further observation and trending of troponin levels. The first two troponins were negative.
ASSESSMENT
The patients symptoms and cardiac history suggest the need for continued hospital observation to rule out acute coronary syndrome and other cardiac-related complications.
EMERGENCY TREATMENTS ADMINISTERED
Morphine was administered and resulted in pain relief.
PLAN
Continue observation and trending of troponin levels in the hospital setting. Further cardiac monitoring and potential adjustments in management based on hospital findings and patient response.
INDEPENDENT REVIEW OF LABS AND INTERPRETATION OF TESTS
My independent review of the initial series of troponin tests shows negative results.
MEDICATION RECONCILIATION
Nitroglycerin was administered at home without relief. Morphine was administered in the emergency department for pain relief. The patient is also noted to be on warfarin, with INR levels being monitored externally.
MEDICAL DECISION MAKING
- Number and Complexity of Problems Addressed: Chronic conditions affecting care include a dual-chambered pacemaker implantation and pulmonary amyloidosis. Differential diagnoses include Acute Coronary Syndrome and Angina Pectoris.
- Data:
Category 1:
Serial troponin tests were reviewed (first two tests were negative).
Category 3:
Discussion of management with the hospital service was conducted to arrange for admission.
-Risk: Admission/observation was deemed necessary due to the complexity and risk associated with the patients presenting symptoms and underlying cardiac history.
DIAGNOSIS
1. Chest pain, unspecified (ICD-10: R07.9)
2. Pain in the left arm (ICD-10: M79.602)
3. Pulmonary amyloidosis (ICD-10: E85.4)
Past History
Past History
ED Past Medical History: Arrthythmia, NIDDM and Other (PE)
ED Past Surgical History: Orthopedic and Other
Social History
Tobacco: Non-smoker
Alcohol: None
Drug: None
Personal:
Living: with family
Employment: Employed
Phy Exam
Physical Exam
Physical Exam:
.
Course
Orders/Labs/Results
Orders:
Orders
02/07/25 20:03
EKG [Electrocardiogram (*1)] Urgent
Reason for Study: Chest Pain
EKG- Treatment ONCE
02/07/25 20:17
Complete Blood Count/With Diff Urgent
Comprehensive Metabolic Panel Urgent
PTT Urgent
Prothrombin Time Urgent
Troponin I Urgent
02/07/25 22:22
Nitroglycerin Sublingual [Nitrostat (Sublingual)] 0.4 mg SL [id number] PRN
02/07/25 22:36
EKG- Treatment ONCE
02/07/25 22:40
Morphine Sulfate 4 mg IV NOW STA
02/07/25 23:00
Electrocardiogram (*1) Urgent
Reason for Study: Chest Pain
02/07/25 23:01
Troponin I Urgent
02/08/25
CT Chest PE Study Urgent
Reason For Exam: cp, dyspnea
02/08/25 00:25
Morphine Sulfate 4 mg IV NOW STA
02/08/25 02:58
Morphine Sulfate 4 mg IV NOW STA
Abnormal Lab Results
02/07/25
20:17
RBC 4.07 L 10^6/uL
(4.70-6.10)
Hgb 11.5 L g/dL
(13.0-18.0)
Hct 34.6 L %
(39.0-52.0)
Absolute Monos (auto) 0.7 H 10^3/uL
(0.1-0.6)
Monocytes % 10.6 H %
(1.7-9.3)
PT 29.5 H Sec
(11.4-14.6)
APTT 46.9 H Sec
(23.4-35.0)
Glucose 113 H mg/dl
(70-99)
02/07/25 20:17
02/07/25 20:17
Vital Signs
Initial and Last Documented VS:
Initial Vital Signs
Temp Pulse Resp BP Pulse Ox
98.2 F 82 16 154/87 95
02/07/25 20:10 02/07/25 20:10 02/07/25 20:10 02/07/25 20:10 02/07/25 20:10
Last Documented Vital Signs
Temp Pulse Resp BP Pulse Ox
98.2 F 73 23 134/98 98
02/07/25 20:10 02/08/25 02:00 02/08/25 02:00 02/08/25 02:00 02/08/25 02:00
*Pulse Oximetry
SaO2: 98
Oxygen Mode of Delivery: Room air
ED Attending Note
-
Portions of this chart may have been created with voice recognition software.� Occasional wrong word or��sound alike� substitutions may have occurred due to the inherent limitations of voice recognition software.
Discharge Plan
Departure
Patient Disposition: Admit
Date of Disposition: 02/08/25
Time of Disposition: 03:17
Admit to: IMU
Presentation/result/management discussed w/ accepting MD/DO: Hospitalist
Discharge Problem:
Chest pain
Prescriptions:
No Action
venlafaxine 150 mg capsule,extended release 24hr
150 mg PO DAILY
warfarin 5 mg tablet
7.5 mg PO DAILY
valsartan 320 mg tablet
320 mg PO DAILY
buspirone 15 mg tablet
30 mg PO BID
rosuvastatin 20 mg tablet
20 mg PO HS
lorazepam 1 mg Tablet
1 mg PO BID PRN (Reason: anxiety)
hydralazine 10 mg Tablet
10 mg PO TID
amlodipine 5 mg Tablet
5 mg PO HS
famotidine [Pepcid AC] 20 mg Tablet
20 mg PO DAILY
pantoprazole 40 mg Tablet,Delayed Release (Dr/Ec)
40 mg PO BID
olanzapine 15 mg Tablet
15 mg PO HS
midodrine 2.5 mg Tablet
2.5 mg PO TID
fludrocortisone 0.1 mg Tablet
0.05 mg PO DAILY
pindolol 5 mg Tablet
5 mg PO BID
desmopressin 0.1 mg Tablet
0.1 mg PO .DAILYEVERYMONDAY
guanfacine 1 mg Tablet Extended Release 24 Hr
1 mg PO QPM
potassium chloride 20 mEq Tablet Extended Release
20 meq PO DAILY
magnesium oxide 400 mg magnesium Tablet
400 mg PO HS
Referrals:
Jennifer Vasquez DO [Family Provider, Family Practice]
Interventions
Interventions:
*Risk Screen - Suicide Last Done: 02/07/25 20:10
*General Assessment Last Done: 02/07/25 20:47
*Neglect/Abuse Screening Last Done: 02/07/25 20:10
*ED- Fall Risk Assessment Last Done: 02/07/25 20:47
*ED COVID-19 Vaccine History Last Done: 02/07/25 20:47
*ED Influenza Vaccine History Last Done: 02/07/25 20:47
ED- Cardiac Assessment Last Done: 02/07/25 20:50
Discharge Date and Time
Print Language: KAZAKH
--- NOTE | 2025-02-08 04:01 | HPS.HSE ---
Family Physician
-
Family Physician: Jennifer Vasquez
Chief Complaint
-
Chest pain
History of Present Illness
This is a 54-year-old male with past medical history significant for atrial fibrillation on Coumadin, hypertension, hyperlipidemia, AICD, dual-chamber defibrillator pacemaker implanted September 04, 2023, cardiac catheterization August 31, 2023, coming to
the emergency department with substernal crushing chest pain.
Patient came to the emergency department from work after experienced sudden onset of crushing chest pain radiating to his left arm and jaw. He had reported shortness of breath and nausea. He also has pain radiating to his lower back. He has a
dual pacer/defibrillator. He received 3 rounds of nitroglycerin prior to arrival without relief. Has some pain relief with morphine in the ED. but still continues to complain of chest pain that is radiating into the left and with some numbness
tingling. He he denies any recent episodes of exertional dyspnea PND orthopnea or increasing lower extremity edema. He has no recent stress test. He does follow with cardiology at [facility]. He has no evidence of any recent AICD firing.
He has been seen in this hospital 3 times since October for chest pain with a negative workup which time. He is also being seen prior to that at [facility] with negative workup for chest pain.
In the Emergency Department he was afebrile, blood pressure was 134/98, pulse was 75 with respirate rate of 23 and was satting 98% on room air. ECG shows a normal sinus rhythm without any acute ST or T wave changes. His troponin was negative x 2.
He had a CT angiogram which was negative for PE. There is no evidence of any pneumonia.
CBC was unremarkable. Electrolyte BUN/creatinine were normal.
Medical History
Past Medical History
Past Medical History: Reports Arrhythmia (atrial fibrillation), NIDDM and Other
Additional Past Medical History:
He has an autonomic specialist Dr. Gautam, orthostatic hypotension diagnosed April 2023 [facility], possible POTS
Past Surgical History: Reports Bowel Resection (Partial colectomy 2023 with reversal July 2024 at [place]), Cardiac (AICD, dual-chamber defibrillator pacemaker implanted September 04, 2023 at [facility], cardiac catheterization August 31, 2023,
umbilical hernia repair 2013, microdiscectomy L4-L5 2018) and Orthopedic
Social History
Tobacco: Non-smoker
Alcohol: None
Drug: None
Personal:
Living: With Family
Family History
Family History: Adopted
Allergies / Home Medications
Allergies reflects when Allergies were last updated in [facility].
Home Medications with original date entered in [facility]
Allergy/Medication List:
Allergies
Allergy/AdvReac Type Severity Reaction Status Date / Time
aspirin Allergy Unknown Unknown Verified 10/22/24 17:24
cefuroxime Allergy Unknown Unknown Verified 10/22/24 17:24
fentanyl Allergy hallucinati Verified 10/22/24 17:24
on/nausea
Latex, Natural Rubber Allergy Unknown Verified 10/22/24 17:24
NSAIDS (Non-Steroidal Allergy Unknown Verified 10/22/24 17:24
Anti-Inflamma
Home Medications
buspirone 15 mg tablet 30 mg PO BID 04/15/23
rosuvastatin 20 mg tablet 20 mg PO HS 04/15/23
valsartan 320 mg tablet 320 mg PO DAILY 04/15/23
venlafaxine 150 mg capsule,extended release 24 hr 150 mg PO DAILY 04/15/23
warfarin 5 mg tablet 7.5 mg PO DAILY 04/15/23
lorazepam 1 mg tablet 1 mg PO BID PRN anxiety 05/06/23
amlodipine 5 mg tablet 5 mg PO HS 10/22/24
desmopressin 0.1 mg tablet 0.1 mg PO .DAILYEVERYMONDAY 10/22/24
famotidine 20 mg tablet (Pepcid AC) 20 mg PO DAILY 10/22/24
fludrocortisone 0.1 mg tablet 0.05 mg PO DAILY 10/22/24
guanfacine 1 mg tablet,extended release 24 hr 1 mg PO QPM 10/22/24
hydralazine 10 mg tablet 10 mg PO TID 10/22/24
magnesium oxide 400 mg PO HS 10/22/24
midodrine 2.5 mg tablet 2.5 mg PO TID 10/22/24
olanzapine 15 mg tablet 15 mg PO HS 10/22/24
pantoprazole 40 mg tablet,delayed release 40 mg PO BID 10/22/24
pindolol 5 mg tablet 5 mg PO BID 10/22/24
potassium chloride 20 mEq tablet,extended release 20 meq PO DAILY 10/22/24
Review of Systems
-
Constitutional: Reports No Symptoms
EENT: Reports No Symptoms
Respiratory: Reports No Symptoms
Cardiac: Reports Chest Pain
Abdomen/GI: Reports No Symptoms
: Reports No Symptoms
Musculoskeletal: Reports No Symptoms
Skin: Reports No Symptoms
Neurological: Reports No Symptoms
Endocrine: Reports No Symptoms
Hematologic/Lymphatic: Reports No Symptoms
Psych: Reports No Symptoms
Physical Exam
Vital Signs
Vital Signs
Temp Pulse Resp BP Pulse Ox
98.2 F 73 23 134/98 98
02/07/25 20:10 02/08/25 02:00 02/08/25 02:00 02/08/25 02:00 02/08/25 03:17
Physical Exam
General: Well Developed, Well Nourished and No Apparent Distress
HEENT: NormoCephalic, Moist mucous membranes and Atraumatic
Respiratory: Clear
Cardiac: S1/S2 and Regular Rhythm; No Murmur or Rub
GI: Soft, Non Tender, Non Distended and Normal Bowel Sounds; No Organomegaly
Rectal: Deferred by Provider
Musculoskeletal: No Clubbing, No Cyanosis and No Edema
Skin: No Rash
Neuro: Nonfocal/grossly intact
Laboratory Results
-
02/07/25 20:17
02/07/25 20:17
Laboratory Results
PT 29.5 Sec (11.4-14.6) H 02/07/25 20:17
INR 2.80 02/07/25 20:17
APTT 46.9 Sec (23.4-35.0) H 02/07/25 20:17
Total Bilirubin 0.6 mg/dl (0.2-1.3) 02/07/25 20:17
AST 24 U/L (17-59) 02/07/25 20:17
ALT 30 U/L (0-50) 02/07/25 20:17
Alkaline Phosphatase 87 U/L (38-126) 02/07/25 20:17
Troponin I < 0.012 ng/ml 02/07/25 23:01
Data Reviewed
-
CT Scan: Report Reviewed by me
Medical Tests (Nuc Med, Echo, EKG etc): Image Personally Visualized and interpreted
Lab Data: Labs Reviewed by me
Old Records: Reviewed
Impression/Plan
-
IMPRESSION:
This is a 55-year-old with past medical history significant for ventricular fibrillation status post AICD, atrial fibrillation on anticoagulation with Coumadin, history of PE, hypertension, [id number] diabetes, bipolar disorder, GERD,
POTS who presents to the emergency department with chest pain. Woke up despite crushing chest pain radiating to his arms is a workup in the ED was negative. ECG was nonischemic troponin was negative x 2. He has no evidence of PE. His INR was
therapeutic at 2.8. He is hemodynamically stable and not hypotensive. There is no evidence of endorgan damage or neurological deficits to suggest or dissection. Chart indicates patient has been in the emergency department for chest pain 3 times
since October. Prior to that admission at [facility] for similar complaints. Workup for chest pain on prior evaluations have been negative. He had prior interrogation of his AICD during his admission in October which shows a normal function. Was
seen by cardiology at that time and his pain was felt to be nonischemic. There was concern that there was seeking opioids and opioids were discontinued and psych was suggested but patient declined the consultation.
Now he still states that he has chest pain despite 2 negative troponins no changes on ECG, normal telemetry so far. I discussed that I will avoid any opioids as I do not think it is musculoskeletal. He did not respond to nitroglycerin so this is
also unlikely cardiac especially in the setting of all these negative findings.
PLAN:
Chest pain -patient without history of CAD but does have a history of PE atrial fibrillation and VT status post AICD. He has 2 negative troponins and nonischemic ECG. Suspect this is nonischemic chest pain.
-Admit to telemetry observation
-Repeat troponin x 1
-Obtain echocardiogram
-Will avoid any opioids will for the chest pain at this time
-cardiology consult
-Continue his usual medications including he is Coumadin statin BP control.
-Continue PPI twice daily
Bipolar
-Continue he is buspirone and venlafaxine
Hypertension/POTS -fairly complex regimen of combining antihypertensives and medications for POTS
� Continue clonidine 0.2 patch
� Continue fludrocortisone 0.05
� Continue midodrine 5 3 times daily at 10 AM 2 PM and 6 PM
- Continue hydralazine 3 times daily
- Continue valsartan and amlodipine
DVT prophylaxis�SCDs for now
CODE STATUS�full code
[2025-02-08 07:08] LABS: Troponin I < 0.012 ng/ml
[2025-02-08 07:35] LABS: Glucose - Point of Care 139 mg/dl (70-99)
[2025-02-08] MEDS: NOVOLOG FLEXPEN-LOW RESISTANCE SC ×2 (07:37→16:32)
--- NOTE | 2025-02-08 07:57 | CON.CAR ---
Addendum entered and electronically signed by rBown Christianson MD 02/10/25 11:20:
I called and updated his with the information about ARR and she will assist her in obtaining endocrinology followup.
Addendum entered and electronically signed by Brown Christianson MD 02/08/25 18:03:
I saw and evaluated the patient with the resident. I was present for the cr portions of the history and exam and personally performed the MDM, including reviewing labs, assessing Mr. Fall, and directing management plan. I agree with the residents
note with my comments/adjustments below:
This is a complex case and all we have is from data review and information from the patient. His cardiac catheterization report has been requested. That cath was performed just before his Medtronic dual-chamber ICD was implanted in August 2023.
More than 1 year of CP and syncope. Now treated for autonomic dysfxn, Hx of HTN, DVT/PE, AFib, loop implant => dual ICD. Cath less than 2 yrs ago for same CP syndrome was negative. 6 ER visits for CP, first here. I reviewed his December 18, 2024
Medtronic remote ICD check. No treated VT or VF. Several episodes of nonsustained VT were seen. Leads normal. 11 years until JEWEL. Cardiac Compass suggested very infrequent paroxysms of device defined ATR/AF.
EKG without dynamic ST changes and stable. Tele unremarkable.
His Sam renin ratio from October 2024 was abnormal at 180. Aldosterone 18. Renin 0.1. This is consistent with hyperaldosteronism.
I told the patient that we will not pursue a repeat ischemic evaluation and that I did not feel that his chest pain has a cardiac origin.
The prolonged CP with normal troponin, stable CP syndrome evaluated by cath in August of 2023 rules oust ACS/ischemia as cause of CP.
He should f/u with cardiologists as an outpatient.
He should be evaluated by an call circuit worker and have complete evaluation for hyperaldosteronism.
Original Note:
Consultation
Consultation Request
Date/Time Consultation Requested: 02/08/2025; 05:16
Date/Time Consultation Performed: 02/08/2025; 07:57
Requesting Provider: Dr. Zac Gayle
Performing Provider: Dr. Brown Christianson; Dr. fJ Velasco
Reason for Consultation: chest pain
Medical History
-
Chief Complaint: chest pain
History of Present Illness:
54 yo M PMH atrial firbillation on warfarin, HTN, POTS, HLD, AICD, dual-chamber defibrillator pacemaker (implanted September 04, 2023), cardiac catheterization in August 31, 2023, bipolar disorder p/w chest pain.
He reports left sided chest pain, pressure quality, radiates to left arm/jaw, 8/10 severity, no clear aggravating or alleviating factors (he specifically denies any worsening with activity or improving with rest). It first begain at ~8pm last night
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 It has been on/off overnight until finally improving to 3/10 pain this morning at ~6am.
He endorses dyspnea and lower back pain during the episode. But denies palpitations, focal neurological deficits.
This pain has happened multiple times before, and he believes the current episode is similar to prior episodes.
He reports good adherence to his medication regimen.
He denies ever having had a myocardial infarction in the past.
Past Medical History
Past Medical History: Arrhythmias (atrial firbilation), HTN, Hypercholesterolemia, NIDDM and Psychiatric (bipolar disorder)
Past Surgical History: Bowel Resection (Partial colectomy 2023 with reversal July 2024 at [place]), Cardiac (AICD, dual-chamber defibrillator pacemaker implanted September 04, 2023 at [facility], cardiac catheterization August 31, 2023) and Other
(umbilical hernia repair 2013, microdiscectomy L4-L5 2018)
Social History
Tobacco: Former Smoker (quit 20 years ago)
Alcohol: Former (quit 2 years ago)
Drug: None
Personal:
Living: With Family
Employment: Employed
Family History
Family History: Adopted
Allergies / Home Medications
Allergy/AdvReac Type Severity Reaction Status Date / Time
aspirin Allergy Unknown Unknown Verified 12/10/24 16:42
cefuroxime Allergy Unknown Unknown Verified 12/10/24 16:42
fentanyl Allergy hallucinati Verified 12/10/24 16:42
on/nausea
Latex, Natural Rubber Allergy Unknown Verified 12/10/24 16:42
NSAIDS (Non-Steroidal Allergy Rash Verified 12/10/24 16:42
Anti-Inflamma
�Medication �Instructions �Recorded �Confirmed �Type
buspirone 15 mg tablet 30 mg PO BID 04/15/23 10/22/24 History
rosuvastatin 20 mg tablet 20 mg PO HS 04/15/23 10/22/24 History
valsartan 320 mg tablet 320 mg PO DAILY 04/15/23 10/22/24 History
venlafaxine 150 mg 150 mg PO DAILY 04/15/23 10/22/24 History
capsule,extended release 24 hr
warfarin 5 mg tablet 7.5 mg PO DAILY 04/15/23 10/22/24 History
lorazepam 1 mg tablet 1 mg PO BID PRN anxiety 05/06/23 10/22/24 History
amlodipine 5 mg tablet 5 mg PO HS 10/22/24 10/22/24 History
desmopressin 0.1 mg tablet 0.1 mg PO .DAILYEVERYMONDAY 10/22/24 10/22/24 History
famotidine 20 mg tablet (Pepcid AC) 20 mg PO DAILY 10/22/24 10/22/24 History
fludrocortisone 0.1 mg tablet 0.05 mg PO DAILY 10/22/24 10/22/24 History
guanfacine 1 mg tablet,extended 1 mg PO QPM 10/22/24 10/22/24 History
release 24 hr
hydralazine 10 mg tablet 10 mg PO TID 10/22/24 10/22/24 History
magnesium oxide 400 mg PO HS 10/22/24 10/22/24 History
midodrine 2.5 mg tablet 2.5 mg PO TID 10/22/24 10/22/24 History
olanzapine 15 mg tablet 15 mg PO HS 10/22/24 10/22/24 History
pantoprazole 40 mg tablet,delayed 40 mg PO BID 10/22/24 10/22/24 History
release
pindolol 5 mg tablet 5 mg PO BID 10/22/24 10/22/24 History
potassium chloride 20 mEq 20 meq PO DAILY 10/22/24 10/22/24 History
tablet,extended release
Review of Systems
-
History Source: Patient
Constitutional: No Symptoms
EENT: No Symptoms
Respiratory: Trouble Breathing (during the episodes of chest pain)
Cardiac: Chest Pain
Abdomen/GI: No Symptoms
: No Symptoms
Musculoskeletal: Other (back pain during chest pain episodes)
Neurological: No Symptoms
Physical Exam
Vital Signs
Temp Pulse Resp BP Pulse Ox
97.4 F 75 17 125/83 96
02/08/25 07:20 02/08/25 07:20 02/08/25 07:20 02/08/25 07:20 02/08/25 07:20
Lab Results
02/07/25 20:17
02/07/25 20:17
Troponin I < 0.012 ng/ml 02/08/25 06:19
Troponin I: < 0.012 x 3
EK02/07/2025
Vent. Rate : 85 BPM Atrial Rate : 85 BPM
P-R Int : 196 ms QRS Dur : 80 ms
QT Int : 370 ms P-R-T Axes : 38 11 33 degrees
QTcB Int : 440 ms
SINUS RHYTHM WITH OCCASIONAL PREMATURE VENTRICULAR COMPLEXES
OTHERWISE NORMAL ECG
WHEN COMPARED WITH ECG OF 07-Feb-2025 20:08,
PREMATURE VENTRICULAR COMPLEXES ARE NOW PRESENT
Chest CT PE 02/08/2025
Per [facility] report, no evidence of PE , no evidence of aneurysm, no definite dissection or adjacent inflammation.
Physical Exam
General: Comfortable
HEENT: Normocephalic
Respiratory: Clear
Cardiac: Other (no murmurs on my exam)
GI: Soft, Non Tender, Non Distended and Normal Bowel Sounds
Genito-urinary: No Costovertebral Tender
Musculoskeletal: No Edema
Skin: Warm
Neuro: AO x 3, No Motor Deficits and Nonfocal/Grossly Intact
Psych: Calm
Impression / Plan
-
In summary, 54 yo M PMH atrial firbillation on warfarin, HTN, POTS, HLD, AICD, dual-chamber defibrillator pacemaker (implanted September 04, 2023), cardiac catheterization in August 31, 2023, bipolar disorder p/w chest pain with negative troponins, negative
EKG, and negative CT Chest.
Chest pain - unclear etiology
- although HPI is consistent with classical cardiac chest pain, normal troponins, negative EKG, and negative CT chest for PE, aneurysm, or dissection
- VS stable, CBC and electrolytes within normal limits
- documented catheterization August 2023
- unclear etiology here: no laboratory/study evidence of ACS at this time, costochondritis (not pain not reproducible to palpation), fibromyalgia, psychiatric(? - multiple visits to ERs for similar symptoms over the past year), vasospastic angina?
- He could certainly be having angina, difficult to know until able to view outside cath report (order for medical records request has been placed)
Plan:
- f/u outside medical records
- continue to monitor for symptoms
- could be reasonable to repeat echocardiogram
HTN/POTS
- per documentation, his regimen appears to be
- Clonidine 0.2 patch
- Fludrocortisone 0.05mg
- Midodrine 5mg tid
- hydralazine tid
- valsartan and amlodipine
[2025-02-08] MEDS: EFFEXOR XR 225 MG PO (08:38)
[2025-02-08] MEDS: APRESOLINE 5 MG PO ×2 (08:38→18:15)
[2025-02-08] MEDS: BUSPAR 30 MG PO (08:39)
[2025-02-08] MEDS: DIOVAN 320 MG PO (08:39)
[2025-02-08] MEDS: PEPCID 20 MG PO (08:39)
[2025-02-08] MEDS: PROTONIX 40 MG PO (08:39)
[2025-02-08] MEDS: FLORINEF 0.05 MG PO (08:39)
[2025-02-08] MEDS: VISKEN 5 MG PO (08:40)
[2025-02-08 09:28] LABS: Glycohemoglobin (HgbA1c) 6.9 % (4.0-5.9)
--- NOTE | 2025-02-08 10:20 | W.PN.HOSP.TC ---
Today's Communication/Plan
-
Await cardiology recommendations, follow-up on echocardiogram, avoid opioids
Assessment / Plan
Assessment / Plan
HPI: 54-year-old with past medical history significant for ventricular fibrillation status post AICD, atrial fibrillation on anticoagulation with Coumadin, history of PE, hypertension, ilm-[id number] diabetes, bipolar disorder, GERD, POTS who
presents to the emergency department with chest pain. Woke up despite crushing chest pain radiating to his arms is a workup in the ED was negative. ECG was nonischemic troponin was negative x 2. He has no evidence of PE. His INR was therapeutic
at 2.8. He is hemodynamically stable and not hypotensive. There is no evidence of endorgan damage or neurological deficits to suggest or dissection. Chart indicates patient has been in the emergency department for chest pain 3 times since October.
Prior to that admission at [facility] for similar complaints. Workup for chest pain on prior evaluations have been negative. He had prior interrogation of his AICD during his admission in October which shows a normal function. Was seen by
cardiology at that time and his pain was felt to be nonischemic. There was concern that there was seeking opioids and opioids were discontinued and psych was suggested but patient declined the consultation.
Assessment/plan:
Chest pain
-Patient without history of CAD but does have a history of PE atrial fibrillation and VT status post AICD.
-Patient has been to the ER multiple times over the summer for the same chest pain, workup in October 2024 was negative
-There was concern regarding possible opioid seeking behavior, therefore would avoid further morphine and opioids
-Serial troponins are negative, EKG unremarkable, echocardiogram requested, cardiology consulted
-Continue his usual medications including he is Coumadin statin BP control.
-Continue PPI twice daily
Bipolar
-Continue he is buspirone and venlafaxine
Hypertension/POTS -fairly complex regimen of combining antihypertensives and medications for POTS
� Continue clonidine 0.2 patch
� Continue fludrocortisone 0.05
� Continue midodrine 5 3 times daily at 10 AM 2 PM and 6 PM
- Continue hydralazine 3 times daily
- Continue valsartan and amlodipine
- IV infusions of 2 L every other week
History of PE
- Continue Coumadin
Obesity due to excess calories
- Affects all aspects of care
DVT prophylaxis�INR therapeutic on Coumadin
CODE STATUS�full code
Physical Exam
General: Obese, no acute distress
HEENT: Normocephalic, Atraumatic, EOMI, MMM
Respiratory: Clear to Auscultation bilaterally
Cardiac: Normal S1/S2, Regular Rate and Rhythm
GI: Soft, Nontender, Nondistended, Normal Bowel Sounds
Extremities: No Clubbing, Cyanosis, or Edema
Neuro: Nonfocal/Grossly Intact
Psych: Calm, Cooperative
Anticipated Discharge: Within 24 hours
Subjective/Interval History
-
Date of Service: February 08, 2025
Patient complains of substernal left-sided chest pain, currently 7 out of 10 in intensity, improved with morphine, unchanged with sublingual nitroglycerin. Denies fever, denies vomiting.
Objective Data
-
Vital Signs:
Vital Signs
Temp Pulse Resp BP Pulse Ox
97.4 F 75 17 125/83 96
02/08/25 07:20 02/08/25 07:20 02/08/25 07:20 02/08/25 10:09 02/08/25 07:20
[2025-02-08 11:36] LABS: Glucose - Point of Care 185 mg/dl (70-99)
[2025-02-08] MEDS: MORPHINE SULFATE 6 MG IV (11:44)
--- NOTE | 2025-02-08 12:36 | CM ---
Patient seen at bedside.
OBS status - form explained & signed. In chart
IA completed
Dx: chest pain
PMH: past medical history significant for atrial fibrillation on Coumadin, hypertension, hyperlipidemia, AICD, dual-chamber defibrillator pacemaker implanted September 04, 2023, cardiac catheterization August 31, 2023
Patient lives with his 1 story home, 6 AKI
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
DME: [employer]
states had [facility] in past a year ago, denies rehab
PCP: Jennifer Vasquez
Pharmacy: [address]
Plan: Home, no needs anticipated
[2025-02-08] MEDS: NOVOLOG FLEXPEN-LOW RESISTANCE 1 UNITS SC (13:48)
[2025-02-08 16:26] LABS: Glucose - Point of Care 109 mg/dl (70-99)
--- NOTE | 2025-02-08 18:13 | W.DCSUMMARY ---
Discharge Summary
Discharge Data
Date of Admission: 02/08/25
Date of Discharge: 02/08/25
-
Pending Results: No
Hospital Course
Discharge diagnosis:
Chest pain, unclear etiology, acute coronary syndrome ruled out
Essential hypertension
Hyperaldosteronism
Postural tachycardia syndrome
Bipolar disorder
History of pulmonary embolism
Paroxysmal atrial fibrillation
Obesity due to excess calories
Consults: Cardiology
Echo:
1. Normal left ventricular size, wall thickness and systolic function. No regional wall motion abnormalities are seen.
2. Borderline concentric left ventricular hypertrophy.
3. Ejection fraction is 55% by visual assessment.
4. Right ventricular size and systolic function are within normal limits.
5. Pacer wire noted in the right heart.
6. No evidence of pericardial effusion.
7. Compared to a prior transthoracic echocardiogram study from 10/24/2024 no obvious changes are seen on this limited study without valve interrogation.
Chest CT:
Vascular: Pulmonary arterial circulation is well opacified. No filling defects to suggest pulmonary embolism.
Thoracic aorta is of normal caliber, without evidence of thoracic aortic dissection.
Thyroid: No significant enlargement, and no significant nodules appreciated.
Supraclavicular region: No pathologic lymphadenopathy appreciated.
No pathologic axillary lymphadenopathy on either side.
Mediastinum: No pathologic mediastinal lymphadenopathy. No significant pericardial effusion. There is no significant coronary arterial calcification.
Lungs: Small lung nodule within the right middle lobe, best seen on series 701 image 54. Nodule is unchanged compared to prior study dated 04/15/2023, and likely benign.
No evidence of lobar consolidation, pleural effusion, pneumothorax, or significant emphysema .
Upper abdomen: The visualized upper abdominal organs are within normal limits.
Osseous structures: Visualized osseous structures are within normal limits.
No paraspinal inflammatory change or large paraspinal mass.
Hospital course:
54-year-old male with a past medical history of POTS, HTN, atrial fibrillation on warfarin, PE, diabetes, and morbid obesity who presents with left-sided and substernal chest pain. Patient was seen in conjunction with cardiology. Serial troponins
were negative, serial EKGs nonischemic. Cardiology ruled out ACS. He had a chest CT, that did not reveal a cause for his chest pain. His pain is not reproducible, therefore unlikely to be musculoskeletal in origin. In either case, patient is
cleared by cardiology for discharge. He is noted to have an abnormal aldosterone: renin ratio from October 2024, indicating that he has hyperaldosteronism. His blood pressure is currently controlled. Cardiology recommends continuing his current
antihypertensive regimen, and following up with endocrinology in the office. 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
Disposition: Home self-care
Discharge planning: Required 38 minutes
Discharge Plan
-
Patient Disposition: Home (Routine Discharge)
Discharge Diagnosis/Procedures: Chest pain, unclear etiology, cardiac cause ruled out, hyperaldosteronism
Condition: Good
Diet: Low Fat and Low Cholesterol
Activity: As tolerated
Driving Restrictions: As prior to admission
Activity Restrictions/Additional Instructions:
You had a test in October 2024, indicating that you have hyperaldosteronism causing your hypertension/high blood pressure.
Cardiology recommends you follow-up with endocrinology, please call to make an appointment.
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
Referrals:
Jennifer Vasquez DO [Family Provider, Family Practice] - in one week
Silvia Flaherty MD [Consulting Staff, Endocrinology] - in three to four weeks
Prescriptions:
Continued
venlafaxine 150 mg capsule,extended release 24hr
150 mg PO DAILY
warfarin 5 mg tablet
7.5 mg PO DAILY
valsartan 320 mg tablet
320 mg PO DAILY
buspirone 15 mg tablet
30 mg PO BID
rosuvastatin 20 mg tablet
20 mg PO HS
lorazepam 1 mg Tablet
1 mg PO BID PRN (Reason: anxiety)
hydralazine 10 mg Tablet
10 mg PO TID
amlodipine 5 mg Tablet
5 mg PO HS
famotidine [Pepcid AC] 20 mg Tablet
20 mg PO DAILY
pantoprazole 40 mg Tablet,Delayed Release (Dr/Ec)
40 mg PO BID
olanzapine 15 mg Tablet
15 mg PO HS
midodrine 2.5 mg Tablet
2.5 mg PO TID
fludrocortisone 0.1 mg Tablet
0.05 mg PO DAILY
pindolol 5 mg Tablet
5 mg PO BID
desmopressin 0.1 mg Tablet
0.1 mg PO .DAILYEVERYMONDAY
guanfacine 1 mg Tablet Extended Release 24 Hr
1 mg PO QPM
potassium chloride 20 mEq Tablet Extended Release
20 meq PO DAILY
magnesium oxide 400 mg magnesium Tablet
400 mg PO HS
Discharge Orders:
Discharge Patient (As Directed); Ordered 02/08/25
Ordered By: Jose Eduardo Iqbal
Discharge Date and Time
Print Language: ARMENIAN
[2025-02-08] MEDS: COUMADIN 5 MG PO (18:15)
== END 2025-02-08 19:47 | disposition home or self-care (01) ==
LOC: 3 WEST ACU 04:38
PROVIDERS: Student in an Organized Health Care Education/Training Program; ADMITTING PHYSICIAN Internal Medicine; ATTENDING PHYSICIAN Family Medicine; EMERGENCY PHYSICIAN Student in an Organized Health Care Education/Training Program; FAMILY PHYSICIAN Family Medicine; OTHER PHYSICIAN Internal Medicine Cardiovascular Disease
DX: R07.9 Chest pain, unspecified (principal); M79.602 Pain in left arm; J99 Respiratory disorders in diseases classified elsewhere; E85.4 Organ-limited amyloidosis; E11.9 Type 2 diabetes mellitus without complications; R06.02 Shortness of breath; I48.0 Paroxysmal atrial fibrillation; E78.00 Pure hypercholesterolemia, unspecified; I11.9 Hypertensive heart disease without heart failure; R07.2 Precordial pain; M54.50 Low back pain, unspecified; R20.0 Anesthesia of skin; R20.2 Paresthesia of skin; I95.1 Orthostatic hypotension; I49.3 Ventricular premature depolarization; F31.9 Bipolar disorder, unspecified; E26.9 Hyperaldosteronism, unspecified; G90.A Postural orthostatic tachycardia syndrome [POTS]; E66.01 Morbid (severe) obesity due to excess calories; Z90.49 Acquired absence of other specified parts of digestive tract; Z91.040 Latex allergy status; Z79.01 Long term (current) use of anticoagulants; Z88.6 Allergy status to analgesic agent; Z88.1 Allergy status to other antibiotic agents; Z88.5 Allergy status to narcotic agent; Z86.711 Personal history of pulmonary embolism; Z79.899 Other long term (current) drug therapy; Z87.891 Personal history of nicotine dependence; Z68.39 Body mass index [BMI] 39.0-39.9, adult; Z95.810 Presence of automatic (implantable) cardiac defibrillator; Z86.79 Personal history of other diseases of the circulatory system
CPT/HCPCS: 71275; 80053; 82962; 83036; 84484; 85025; 85610; 85730; 93005; 93308; 96374; 96376; 99285; G0378; Q9967

== ENCOUNTER 2025-03-02 19:33 | Emergency (ER) | payer OTHER, SELFPAY ==
[2025-03-02 19:47] VITALS: BP 147/88
[2025-03-02 20:02] LABS: Hematocrit 35.2 % (39.0-52.0); Hemoglobin 11.2 g/dL (13.0-18.0); Mean Corp Hgb Conc. 31.8 g/dL (33.0-37.0); Mean Corpuscular Volume 86.3 fL (80.0-94.0); Nucleated Red Blood Cells % 0 % (-); Platelet Count 219 10^3/uL (130-400); Red Cell Dist. Width 13.7 % (11.5-14.5)
[2025-03-02 20:23] LABS: ALT (SGPT) 36 U/L (0-50); AST (SGOT) 29 U/L (17-59); Albumin 4.3 g/dl (3.5-5.0); Alkaline Phosphatase 80 U/L (38-126); Blood Urea Nitrogen 14 mg/dl (9-20); Calcium 8.9 mg/dl (8.4-10.2); Carbon Dioxide 26 mmol/L (22-30); Chloride 103 mmol/L (98-107); Glucose 117 mg/dl (70-99); Potassium 3.9 mmol/L (3.5-5.1); Sodium 135 mmol/L (135-145); Total Protein 7.0 g/dl (6.3-8.2); eGFR > 60.00
[2025-03-02 20:35] LABS: Troponin I < 0.012 ng/ml
[2025-03-02 21:12] VITALS: BP 125/86
[2025-03-02 21:18] VITALS: BMI 40.0
[2025-03-02 22:00] VITALS: BP 131/92
--- NOTE | 2025-03-02 22:05 | ED.GENMED ---
History of Present Illness
General
Chief Complaint: Chest Pain
Source: patient and records
Time Seen by Provider: 03/02/25 21:36
History of Present Illness
History of Present Illness:
54-year-old male with past medical history of loop recorder status post possible V-fib arrhythmia status post Medtronic AICD placement, history of A-fib, DVT/PE, ujp-[id number] diabetes who presents to the emergency department for evaluation
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
Patient took 2 sublingual nitroglycerin on his own with slight improvement but not resolved, EMS provided patient with a third nitroglycerin and 100 mcg of fentanyl with slight improvement but again pain still not resolved and at time of my exam
patient still with pain. Patient follows with cardiology at [facility] and is on Coumadin which she reports good compliance with. Denies any fevers or recent illnesses. Of note, patient was admitted for chest pain at this hospital last
month and seen by cardiology with unremarkable testing.
Past History
Past History
ED Past Medical History: Arrthythmia, NIDDM, Psychiatric and Other (PE)
ED Past Surgical History: Cardiac, Orthopedic and Other
Social History
Tobacco: Non-smoker
Alcohol: None
Drug: None
Personal:
Living: with family
Employment: Employed
Review of Systems
Review of Systems
All Other Systems: ROS reviewed and negative except as documented in HPI and ROS
Phy Exam
Physical Exam
Physical Exam:
GENERAL: Alert , in no apparent distress, overweight
HEAD: Normocephalic atraumatic
EYE: conjunctiva clear
NECK: Supple
ENT: o/p clr, mmm.
CARDIAC: Regular rate and rhythm
LUNGS: Clear breath sounds bilaterally, no acute respiratory distress, no wheezes/rales/rhonchi
ABDOMEN: soft, non-tender
NEUROLOGICAL: Alert and oriented
SKIN: Warm and dry, skin intact.
MUSCULOSKELETAL: well perfused.
PSYCH: Normal and appropriate interaction.
Scores
Heart Failure Risk
Heart Failure Risk Score: Not Applicable
Heart Score for Chest Pain Patients
STEMI patient?: Not applicable
Withdrawal Assessment of Alcohol
Withdrawal Assessment Completed?: Not applicable
Course
Orders/Labs/Results
Orders:
Orders
03/02/25 19:34
Electrocardiogram (*1) Urgent
Reason for Study: Chest Pain
EKG- Treatment ONCE
03/02/25 19:52
Complete Blood Count/With Diff Urgent
Comprehensive Metabolic Panel Urgent
Troponin I Urgent
03/02/25 21:47
pacemaker [Interrogate Pacemaker- Treatment] ONCE
03/02/25 21:52
CT Chest/abd/pelvis Angio W/wo Urgent
Comment:
Reason For Exam: chest pain, hx PE, syncope
03/02/25 21:53
0.9% Sodium Chloride 1000 ml [Nss] 1,000 ml IV BOLUS
03/02/25 22:00
Nitroglycerin 100 mg/250 ml [Nitroglycerin Premix] 100 mg in 250 ml IV PER PROTOCOL
Initial dose in mcg/min, then titrate:: 2
Titrate to keep:: Chest Pain Free
Titrate by mcg/min:: 5 mcg/min, may increase by 10 mcg/min if dose > 20 mcg/min
Frequency of titrations (minutes):: every 3-5 minutes
Maximum dose in mcg/min:: 200
Begin to taper infusion when:: Remained at goal for 2hrs
Taper by mcg/min:: 5 mcg/min
Frequency of taper (minutes) if patient maintains goal:: 30
Taper to off?: Yes
If infusion off & no longer maintaining goal:: Contact Provider
03/02/25 22:02
PTT Urgent
Prothrombin Time Urgent
03/02/25 23:49
Troponin I Urgent
Abnormal Lab Results
03/02/25 03/02/25
19:52 22:02
RBC 4.08 L 10^6/uL
(4.70-6.10)
Hgb 11.2 L g/dL
(13.0-18.0)
Hct 35.2 L %
(39.0-52.0)
MCHC 31.8 L g/dL
(33.0-37.0)
Monocytes % 10.1 H %
(1.7-9.3)
PT 26.3 H Sec
(11.4-14.6)
APTT 40.7 H Sec
(23.4-35.0)
Glucose 117 H mg/dl
(70-99)
03/02/25 19:52
03/02/25 19:52
Vital Signs
Initial and Last Documented VS:
Initial Vital Signs
Temp Pulse Resp BP Pulse Ox
98.1 F 68 20 147/88 96
03/02/25 19:47 03/02/25 19:47 03/02/25 19:47 03/02/25 19:47 03/02/25 19:47
Last Documented Vital Signs
Temp Pulse Resp BP Pulse Ox
98.1 F 76 17 143/105 98
03/02/25 19:47 03/02/25 23:00 03/02/25 23:00 03/02/25 23:00 03/02/25 23:00
[employer] Cutter consulted with Physician
[employer] Cutter consulted with physician?: Yes
Name of Physician Consulted: José Miguel
MDM/Problems Addressed
Differential Diagnosis Includes:
Dissection
PE
ACS
Pericarditis/Myocarditis
Pericardial effusion
PTX
Acute on Chronic Pain (well documented chronic pain on previous chart reviews)
MDM/Problems Addressed:
54-year-old male presenting to the ER with EMS after a reported syncopal episode followed by chest pain which persists at time of my exam. Patient hemodynamically stable and in no acute distress. He did have recent admission here at the very end
of January with cardiology team in consultation and their consultation as follows below:
I saw and evaluated the patient with the resident. I was present for the cr portions of the history and exam and personally performed the MDM, including reviewing labs, assessing Mr. Fall, and directing management plan. I agree with the residents
note with my comments/adjustments below:
This is a complex case and all we have is from data review and information from the patient. His cardiac catheterization report has been requested. That cath was performed just before his Medtronic dual-chamber ICD was implanted in August 2023.
More than 1 year of CP and syncope. Now treated for autonomic dysfxn, Hx of HTN, DVT/PE, AFib, loop implant => dual ICD. Cath less than 2 yrs ago for same CP syndrome was negative. 6 ER visits for CP, first here. I reviewed his December 18, 2024
Medtronic remote ICD check. No treated VT or VF. Several episodes of nonsustained VT were seen. Leads normal. 11 years until JEWEL. Cardiac Compass suggested very infrequent paroxysms of device defined ATR/AF.
EKG without dynamic ST changes and stable. Tele unremarkable.
His Sam renin ratio from October 2024 was abnormal at 180. Aldosterone 18. Renin 0.1. This is consistent with hyperaldosteronism.
I told the patient that we will not pursue a repeat ischemic evaluation and that I did not feel that his chest pain has a cardiac origin.
The prolonged CP with normal troponin, stable CP syndrome evaluated by cath in August of 2023 rules oust ACS/ischemia as cause of CP.
He should f/u with cardiologists as an outpatient.
He should be evaluated by an volunteer services coordinator and have complete evaluation for hyperaldosteronism.
Based off the presentation tonight as well as the patient's known history we will still scan for CT with dissection protocol although after record review my suspicion for any significant cardiac or vascular etiology was significantly lessened. I
had initially ordered a nitroglycerin drip but this was canceled and patient did not receive this medication. Will repeat a 3-hour troponin, interrogate patient's pacemaker but if these studies are unremarkable patient can be safely dispositioned
home and can follow-up with his outpatient shactor helper as well as with endocrinology as recommended by cardiology during his last admission.
Chronic conditions affecting care: Arrhythmia
Acute Exacerbation and/or Progression of Chronic Illness: Arrhythmia
*Radiology
Radiology exam reviewed: radiology read reviewed
*Pulse Oximetry
SaO2: 97
Oxygen Mode of Delivery: Room air
Patient hypoxic: no
*Critical Care Note
Total Time (30-74mins, 75-104mins- exclusive of procedures): Not Applicable
Data Reviewed
Review of Other/Old Records Reveals: Labs, Records and Discharge Summary
Source: patient and records
Patient Management
Escalation/DeEscalation of care consider admission/obs:
CT is negative for acute dissection or PE. New findings of the SMA stenosis noted however this is unlikely to be causing the patient's described pain. 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
artery aneurysm noted. Repeat troponin negative. Based off of multiple evaluations for similar as well as with consultation with cardiology on recent visit to the hospital I do not feel patient needs any further emergent workup or testing and that
he can be safely dispositioned home to follow-up with his usual shactor helper and primary care provider as an outpatient. Patient aware of return precautions to the ER.
ED Attending Note
-
Portions of this chart may have been created with voice recognition software.� Occasional wrong word or��sound alike� substitutions may have occurred due to the inherent limitations of voice recognition software.
Discharge Plan
Departure
Patient Disposition: Home (Routine Discharge)
Date of Disposition: 03/03/25
Time of Disposition: 00:35
Patient with high blood pressure during this ER visit?: Yes
Discharge Problem:
Chest pain
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
Prescriptions:
No Action
venlafaxine 150 mg capsule,extended release 24hr
150 mg PO DAILY
warfarin 5 mg tablet
7.5 mg PO DAILY
valsartan 320 mg tablet
320 mg PO DAILY
buspirone 15 mg tablet
30 mg PO BID
rosuvastatin 20 mg tablet
20 mg PO HS
lorazepam 1 mg Tablet
1 mg PO BID PRN (Reason: anxiety)
hydralazine 10 mg Tablet
10 mg PO TID
amlodipine 5 mg Tablet
5 mg PO HS
famotidine [Pepcid AC] 20 mg Tablet
20 mg PO DAILY
pantoprazole 40 mg Tablet,Delayed Release (Dr/Ec)
40 mg PO BID
olanzapine 15 mg Tablet
15 mg PO HS
midodrine 2.5 mg Tablet
2.5 mg PO TID
fludrocortisone 0.1 mg Tablet
0.05 mg PO DAILY
pindolol 5 mg Tablet
5 mg PO BID
desmopressin 0.1 mg Tablet
0.1 mg PO .DAILYEVERYMONDAY
guanfacine 1 mg Tablet Extended Release 24 Hr
1 mg PO QPM
potassium chloride 20 mEq Tablet Extended Release
20 meq PO DAILY
magnesium oxide 400 mg magnesium Tablet
400 mg PO HS
Referrals:
Jennifer Vasquez, DO [Family Provider, Family Practice]
Interventions
Interventions:
*Risk Screen - Suicide Last Done: 03/02/25 19:34
*General Assessment Last Done: 03/02/25 19:48
*Neglect/Abuse Screening Last Done: 03/02/25 19:34
*ED- Fall Risk Assessment Last Done: 03/03/25 01:08
*ED COVID-19 Vaccine History Last Done: 03/02/25 19:48
*ED Influenza Vaccine History Last Done: 03/02/25 19:48
*Nursing Disposition Last Done: 03/03/25 01:08
ED- Cardiac Assessment Last Done: 03/02/25 21:12
Discharge Date and Time
Discharge Date/Time: 03/03/25 01:09
Print Language: [id number]
[2025-03-02 22:19] LABS: INR 2.36; PT 26.3 Sec (11.4-14.6)
[2025-03-02 22:21] LABS: APTT 40.7 Sec (23.4-35.0)
[2025-03-02 23:00] VITALS: BP 143/105
[2025-03-03 00:29] LABS: Troponin I < 0.012 ng/ml
== END 2025-03-03 01:09 | disposition home or self-care (01) ==
LOC: EMR 19:33
PROVIDERS: Emergency Medicine; Physician Assistant Medical; EMERGENCY PHYSICIAN Emergency Medicine; FAMILY PHYSICIAN Family Medicine
DX: R07.9 Chest pain, unspecified (principal); E11.9 Type 2 diabetes mellitus without complications; I10 Essential (primary) hypertension; I48.91 Unspecified atrial fibrillation; Z86.711 Personal history of pulmonary embolism; Z95.810 Presence of automatic (implantable) cardiac defibrillator; Z79.01 Long term (current) use of anticoagulants
CPT/HCPCS: 99284; 71275; 74174; 80053; 84484; 85025; 85610; 85730; 93005; Q9967